=== PATIENT | female | born 1995 | race African-American/Black ===

== ENCOUNTER 2020-08-03 03:07 | Emergency (ER) | payer MEDICAID ==
[2020-08-03] MEDS ORDERED: LORazepam 0.5 MG Tab PO ONE (03:37)
--- NOTE | 2020-08-03 03:41 | EDM.PDOCBH ---
ED HPI GENERAL MEDICAL PROBLEM - General Chief Complaint: Behavioral/Psych Stated Complaint: MENTAL HEALTH CRISIS Time Seen by Provider: 08/03/20 03:20 Source of Information: Reports: Patient, RN Notes Reviewed - History of Present Illness INITIAL COMMENTS - FREE TEXT/NARRATIVE: 24 yr old female with concern about severe stress and anxiety. Sx are chronic but worse the last few days. She feels that she needs help and somewhere to feel more safe. Asked several times if there has been any particular trigger for current distress, pt not aware of anything in particular. There is a staff member from [facility] here with her who believes it should be OK for her to be admitted to the [facility]. No hallucinations or feelings of self harm. Had a cough a few days ago, now gone. Had a rapid covid screen done at clinic 2 days ago which was negative. Pt states send out results are expected to be available today. Headache Pain Score (Numeric/FACES): 8 - Related Data Allergies Allergy/AdvReac Type Severity Reaction Status Date / Time divalproex sodium Allergy Rash Verified 08/03/20 03:23 [From Depakote] lurasidone [From Latuda] Allergy Rash Verified 08/03/20 03:23 Home Meds: Home Meds LORazepam [Ativan] 0.5 mg PO BID #6 tablet 08/03/20 [Rx] QUEtiapine Fumarate [Seroquel] 200 mg PO BEDTIME 08/03/20 [History] QUEtiapine [SEROquel] 50 mg PO 1200,1700 08/03/20 [History] amLODIPine Besylate [Norvasc] 10 mg PO DAILY 08/03/20 [History] lamoTRIgine [Lamotrigine] 50 mg PO BID 08/03/20 [History] Past Medical History Cardiovascular History: Reports: Hypertension Psychiatric History: Reports: Anxiety, Depression, PTSD Social & Family History - Tobacco Use Tobacco Use Status *Q: Current Every Day Tobacco User Years of Tobacco use: 1 Packs/Tins Daily: 1 - Recreational Drug Use Recreational Drug Use: Yes Drug Use in Last 12 Months: No Recreational Drug Type: Reports: Marijuana/Hashish ED ROS GENERAL - Review of Systems Review Of Systems: See Below Constitutional: Denies: Fever, Chills HEENT: Denies: Throat Pain Respiratory: Reports: Cough (gone). Denies: Shortness of Breath Cardiovascular: Denies: Chest Pain GI/Abdominal: Denies: Abdominal Pain, Diarrhea, Nausea, Vomiting Musculoskeletal: Reports: No Symptoms Skin: Reports: No Symptoms Neurological: Reports: No Symptoms. Denies: Numbness, Tingling, Trouble Speaking, Difficulty Walking, Weakness Psychiatric: Reports: Anxiety. Denies: Depression, Suicidal Ideation ED EXAM, BEHAVIORAL HEALTH - Physical Exam Exam: See Below General Appearance: Alert, No Apparent Distress Head: Atraumatic Neck: Supple Respiratory/Chest: No Respiratory Distress, Lungs Clear, Normal Breath Sounds. No: Rhonchi, Wheezing Cardiovascular: Tachycardia GI/Abdominal: Soft, Non-Tender Back Exam: No: CVA Tenderness (L), CVA Tenderness (R) Extremities: Normal Inspection, Normal Range of Motion Neurological: Alert, No Motor/Sensory Deficits Psychiatric: Alert, Normal Affect, Normal Cognition. No: Suicidal Thoughts, Auditory Hallucinations, Visual Hallucinations Skin Exam: Warm, Dry COURSE, BEHAVIORAL HEALTH COMP - Course Vital Signs: Last Vital Signs Temp 97.3 F 08/03/20 03:25 Pulse 119 H 08/03/20 03:25 Resp 17 08/03/20 03:25 BP 123/87 08/03/20 03:25 Pulse Ox 95 08/03/20 03:25 Orders, Labs, Meds: Medications Discontinued Medications Generic Name Dose Route Start Last Admin Trade Name Danna PRN Reason Stop Dose Admin Lorazepam 0.5 mg 08/03/20 03:37 08/03/20 03:48 Ativan PO 08/03/20 03:38 0.5 mg ONETIME ONE Administration Re-Assessment/Re-Exam: Pt is not psychotic or suicidal. She is a reasonable candidate for the [facility], Have given ativan 0.5 mg PO. Discharge instr. as documented. Departure - Departure Time of Disposition: 03:45 Disposition: Home, Self-Care 01 Condition: Fair Clinical Impression: PTSD (post-traumatic stress disorder), Anxiety - Discharge Information Prescriptions: LORazepam [Ativan] 0.5 mg PO BID #6 tablet Referrals: PCP,None [Primary Care Provider] - Forms: ED Department Discharge Additional Instructions: Ativan 0.5 mg has been given here in the ED. Continue ativan 0.5 mg twice daily for 3 days. Continue other medications as previously prescribed. A medical screening exam has been done and patient is medically cleared for admission to the [facility]. Sepsis Event Note (ED) - Evaluation Sepsis Screening Result: No Definite Risk - Focused Exam Vital Signs: Vital Signs Temp Pulse Resp BP Pulse Ox 08/03/20 03:25 97.3 F 119 H 17 123/87 95
== END 2020-08-03 04:11 | disposition home or self-care (01) ==
LOC: JD.ED 03:07
DX: F43.10 Post-traumatic stress disorder, unspecified (principal); F41.9 Anxiety disorder, unspecified; I10 Essential (primary) hypertension; Z72.0 Tobacco use; Z88.8 Allergy status to other drugs, medicaments and biological substances; Z79.899 Other long term (current) drug therapy
CPT/HCPCS: 99283; A9270

== ENCOUNTER 2020-08-15 18:08 | Emergency (ER) | payer MEDICAID ==
--- NOTE | 2020-08-15 19:35 | EDM.PDOC ---
ED HPI GENERAL MEDICAL PROBLEM - General Chief Complaint: Behavioral/Psych Stated Complaint: SUICIDAL THOUGHTS Time Seen by Provider: 08/15/20 19:34 - History of Present Illness INITIAL COMMENTS - FREE TEXT/NARRATIVE: 24-year-old female presents the mood urgency room with some suicidal thoughts. She does not have a plan. Patient says she has been under a lot of stress. She has been at the [facility] and was able to cut herself there in the past. She is not eager to go back there. She does go there for counseling however. Patient denies any recent illnesses no fevers chills or other problems. Patient does not have any medical problems that are causing her any distress at this time. Frontal Headache Pain Score (Numeric/FACES): 6 - Related Data Allergies Allergy/AdvReac Type Severity Reaction Status Date / Time divalproex sodium Allergy Severe Rash Verified 08/15/20 18:21 [From Depakote] lurasidone [From Latuda] Allergy Severe Rash Verified 08/15/20 18:21 Home Meds: Home Meds QUEtiapine Fumarate [Seroquel] 200 mg PO BEDTIME 08/03/20 [History] QUEtiapine [SEROquel] 50 mg PO 1200,1700 08/03/20 [History] amLODIPine Besylate [Norvasc] 10 mg PO DAILY 08/03/20 [History] lamoTRIgine [Lamotrigine] 75 mg PO BID 08/03/20 [History] QUEtiapine [SEROquel] 50 mg PO ASDIRECTED #20 tab 08/15/20 [Rx] QUEtiapine [SEROquel] 200 mg PO BEDTIME #20 tab 08/15/20 [Rx] lamoTRIgine 75 mg PO BID #60 tab 08/15/20 [Rx] Past Medical History Cardiovascular History: Reports: Hypertension Psychiatric History: Reports: Anxiety, Depression, PTSD Social & Family History - Tobacco Use Tobacco Use Status *Q: Current Every Day Tobacco User Years of Tobacco use: 1 Packs/Tins Daily: 1 - Caffeine Use Caffeine Use: Reports: Soda - Recreational Drug Use Recreational Drug Use: No ED ROS GENERAL - Review of Systems Review Of Systems: See Below Constitutional: Reports: No Symptoms HEENT: Reports: No Symptoms Respiratory: Reports: No Symptoms Cardiovascular: Reports: No Symptoms Endocrine: Reports: No Symptoms GI/Abdominal: Reports: No Symptoms : Reports: No Symptoms Musculoskeletal: Reports: No Symptoms Skin: Reports: No Symptoms Neurological: Reports: No Symptoms Psychiatric: Reports: Anxiety, Depression, Suicidal Ideation. Denies: Agitation, Homicidal Ideation, Mood Lability Hematologic/Lymphatic: Reports: No Symptoms Immunologic: Reports: No Symptoms ED EXAM, GENERAL - Physical Exam Exam: See Below Exam Limited By: No Limitations General Appearance: Alert, No Apparent Distress Eye Exam: Bilateral Eye: Normal Inspection, PERRL Ears: Normal External Exam, Normal Canal, Hearing Grossly Normal, Normal TMs Nose: Normal Inspection, Normal Mucosa, No Blood Throat/Mouth: Normal Inspection, Normal Lips, Normal Teeth, Normal Gums, Normal Oropharynx, Normal Voice, No Airway Compromise Head: Atraumatic, Normocephalic Neck: Normal Inspection, Supple, Non-Tender, Full Range of Motion. No: Lymphadenopathy (L), Lymphadenopathy (R) Respiratory/Chest: No Respiratory Distress, Lungs Clear, Normal Breath Sounds Cardiovascular: Normal Peripheral Pulses, Regular Rate, Rhythm, No Edema, No Murmur GI/Abdominal: Normal Bowel Sounds, Soft, Non-Tender Back Exam: Normal Inspection. No: CVA Tenderness (L), CVA Tenderness (R) Neurological: Alert, Oriented, CN II-XII Intact, Normal Cognition, Normal Gait, Normal Reflexes, No Motor/Sensory Deficits Lymphatic: No Adenopathy #1 Interpretation EKG Date: 08/15/20 Rhythm: Other (Sinus tach rate 104) [place]: Normal P-Wave: Present QRS: Normal ST-T: Normal QT: Normal GA/PQ Interval: Normal Comparison: NA - No Prior EKG EKG Interpretation Comments: Borderline EKG mild tachycardia Course - Vital Signs Last Recorded V/S: Last Vital Signs Temp 36.9 C 08/15/20 18:26 Pulse 117 H 08/15/20 18:26 Resp 20 08/15/20 18:26 BP 138/86 08/15/20 18:26 Pulse Ox 96 08/15/20 18:26 - Orders/Labs/Meds Orders: Active Orders 24 hr Category Date Time Status EKG Documentation Completion [RC] STAT Care 08/15/20 21:48 Active CULTURE URINE [RM] Stat Lab 08/15/20 19:55 Received Labs: Laboratory Tests 08/15/20 08/15/20 08/15/20 Range/Units 19:55 19:55 19:55 WBC 5.94 (3.98-10.04) K/mm3 RBC 4.75 (3.98-5.22) M/mm3 Hgb 13.8 (11.2-15.7) gm/dl Hct 41.5 (34.1-44.9) % MCV 87.4 (79.4-94.8) fl MCH 29.1 (25.6-32.2) pg MCHC 33.3 (32.2-35.5) g/dl RDW Std Deviation 39.2 (36.4-46.3) fL Plt Count 346 (182-369) K/mm3 MPV 9.1 L (9.4-12.3) fl Neut % (Auto) 49.9 (34.0-71.1) % Lymph % (Auto) 40.7 (19.3-51.7) % [place] % (Auto) 6.9 (4.7-12.5) % Eos % (Auto) 2.0 (0.7-5.8) Baso % (Auto) 0.2 (0.1-1.2) % Neut # (Auto) 2.96 (1.56-6.13) K/mm3 Lymph # (Auto) 2.42 (1.18-3.74) K/mm3 [place] # (Auto) 0.41 H (0.24-0.36) K/mm3 Eos # (Auto) 0.12 (0.04-0.36) K/mm3 Baso # (Auto) 0.01 (0.01-0.08) K/mm3 PT 11.4 (9.7-12.0) SECONDS INR 1.07 Sodium (136-145) mEq/L Potassium (3.5-5.1) mEq/L Chloride (98-107) mEq/L Carbon Dioxide (21-32) mEq/L Anion Gap (5-15) BUN (7-18) mg/dL Creatinine (0.55-1.02) mg/dL Est Cr Clr Drug Dosing mL/min Estimated GFR (MDRD) (>60) mL/min BUN/Creatinine Ratio (14-18) Glucose (74-106) mg/dL Calcium (8.5-10.1) mg/dL Total Bilirubin (0.2-1.0) mg/dL AST (15-37) U/L ALT (14-59) U/L Alkaline Phosphatase (46-116) U/L Total Protein (6.4-8.2) g/dl Albumin (3.4-5.0) g/dl Globulin gm/dL Albumin/Globulin Ratio (1-2) TSH 3rd Generation (0.358-3.74) uIU/mL Urine Color Yellow (Yellow) Urine Appearance Cloudy H (Clear) Urine pH 6.0 (5.0-8.0) Ur Specific [place] > or = 1.030 (1.005-1.030) Urine Protein Trace H (Negative) Urine Glucose (UA) Negative (Negative) Urine Ketones Negative (Negative) Urine Occult Blood Trace-intact H (Negative) Urine Nitrite Negative (Negative) Urine Bilirubin Negative (Negative) Urine Urobilinogen 1.0 (0.2-1.0) Ur Leukocyte Esterase Trace H (Negative) Urine RBC 0-5 (0-5) /hpf Urine WBC 10-20 H (0-5) /hpf Ur Squamous Epith Cells 10-20 H (0-5) /hpf Urine Bacteria Many H (FEW) /hpf Urine Mucus Many H (FEW) /hpf Urine HCG, Qual (NEGATIVE) Salicylates (2.8-20) mg/dL Urine Opiates Screen (KRBKOX=071) Ur Buprenorphine Scrn (CUTOFF=10) Ur Oxycodone Screen (TJD4CO=359) Urine Methadone Screen (DFZOMD=985) Ur Propoxyphene Screen (YYQGVM=025) Acetaminophen (10-30) ug/mL Ur Barbiturates Screen (JOTURM=595) Ur Tricyclics Screen (FXTBOW=008) Ur Phencyclidine Scrn (CUTOFF=25) Ur Amphetamine Screen (XBJDSI=189) U Methamphetamines Scrn (KDOTUA=184) U Benzodiazepines Scrn (ZENEUS=696) U Cocaine Metab Screen (ESFUSL=795) U Marijuana (THC) Screen (CUTOFF=50) Ethyl Alcohol (0.00) gm% SARS-CoV-2 RNA (LAILA) (NEGATIVE) 08/15/20 08/15/20 08/15/20 Range/Units 19:55 19:55 19:55 WBC (3.98-10.04) K/mm3 RBC (3.98-5.22) M/mm3 Hgb (11.2-15.7) gm/dl Hct (34.1-44.9) % MCV (79.4-94.8) fl MCH (25.6-32.2) pg MCHC (32.2-35.5) g/dl RDW Std Deviation (36.4-46.3) fL Plt Count (182-369) K/mm3 MPV (9.4-12.3) fl Neut % (Auto) (34.0-71.1) % Lymph % (Auto) (19.3-51.7) % [place] % (Auto) (4.7-12.5) % Eos % (Auto) (0.7-5.8) Baso % (Auto) (0.1-1.2) % Neut # (Auto) (1.56-6.13) K/mm3 Lymph # (Auto) (1.18-3.74) K/mm3 [place] # (Auto) (0.24-0.36) K/mm3 Eos # (Auto) (0.04-0.36) K/mm3 Baso # (Auto) (0.01-0.08) K/mm3 PT (9.7-12.0) SECONDS INR Sodium 142 (136-145) mEq/L Potassium 3.6 (3.5-5.1) mEq/L Chloride 105 (98-107) mEq/L Carbon Dioxide 27 (21-32) mEq/L Anion Gap 13.6 (5-15) BUN 10 (7-18) mg/dL Creatinine 0.9 (0.55-1.02) mg/dL Est Cr Clr Drug Dosing 105.13 mL/min Estimated GFR (MDRD) > 60 (>60) mL/min BUN/Creatinine Ratio 11.1 L (14-18) Glucose 115 H (74-106) mg/dL Calcium 9.8 (8.5-10.1) mg/dL Total Bilirubin 0.7 (0.2-1.0) mg/dL AST 11 L (15-37) U/L ALT 23 (14-59) U/L Alkaline Phosphatase 70 (46-116) U/L Total Protein 7.7 (6.4-8.2) g/dl Albumin 4.0 (3.4-5.0) g/dl Globulin 3.7 gm/dL Albumin/Globulin Ratio 1.1 (1-2) TSH 3rd Generation 0.576 (0.358-3.74) uIU/mL Urine Color (Yellow) Urine Appearance (Clear) Urine pH (5.0-8.0) Ur Specific [place] (1.005-1.030) Urine Protein (Negative) Urine Glucose (UA) (Negative) Urine Ketones (Negative) Urine Occult Blood (Negative) Urine Nitrite (Negative) Urine Bilirubin (Negative) Urine Urobilinogen (0.2-1.0) Ur Leukocyte Esterase (Negative) Urine RBC (0-5) /hpf Urine WBC (0-5) /hpf Ur Squamous Epith Cells (0-5) /hpf Urine Bacteria (FEW) /hpf Urine Mucus (FEW) /hpf Urine HCG, Qual (NEGATIVE) Salicylates 0.2 L (2.8-20) mg/dL Urine Opiates Screen Negative (ZDZFNL=938) Ur Buprenorphine Scrn Negative (CUTOFF=10) Ur Oxycodone Screen Negative (YPH6TM=392) Urine Methadone Screen Negative (YRSHIJ=074) Ur Propoxyphene Screen Negative (APWQVH=357) Acetaminophen 0 L (10-30) ug/mL Ur Barbiturates Screen Negative (YPUZLE=759) Ur Tricyclics Screen Presumptive positive H (FNLSVX=350) Ur Phencyclidine Scrn Negative (CUTOFF=25) Ur Amphetamine Screen Negative (TRMAFC=204) U Methamphetamines Scrn Negative (MAQWDF=311) U Benzodiazepines Scrn Negative (QWYJPK=997) U Cocaine Metab Screen Negative (DETPNG=679) U Marijuana (THC) Screen Negative (CUTOFF=50) Ethyl Alcohol 0.00 (0.00) gm% SARS-CoV-2 RNA (LAILA) (NEGATIVE) 08/15/20 08/15/20 Range/Units 19:55 20:30 WBC (3.98-10.04) K/mm3 RBC (3.98-5.22) M/mm3 Hgb (11.2-15.7) gm/dl Hct (34.1-44.9) % MCV (79.4-94.8) fl MCH (25.6-32.2) pg MCHC (32.2-35.5) g/dl RDW Std Deviation (36.4-46.3) fL Plt Count (182-369) K/mm3 MPV (9.4-12.3) fl Neut % (Auto) (34.0-71.1) % Lymph % (Auto) (19.3-51.7) % [place] % (Auto) (4.7-12.5) % Eos % (Auto) (0.7-5.8) Baso % (Auto) (0.1-1.2) % Neut # (Auto) (1.56-6.13) K/mm3 Lymph # (Auto) (1.18-3.74) K/mm3 [place] # (Auto) (0.24-0.36) K/mm3 Eos # (Auto) (0.04-0.36) K/mm3 Baso # (Auto) (0.01-0.08) K/mm3 PT (9.7-12.0) SECONDS INR Sodium (136-145) mEq/L Potassium (3.5-5.1) mEq/L Chloride (98-107) mEq/L Carbon Dioxide (21-32) mEq/L Anion Gap (5-15) BUN (7-18) mg/dL Creatinine (0.55-1.02) mg/dL Est Cr Clr Drug Dosing mL/min Estimated GFR (MDRD) (>60) mL/min BUN/Creatinine Ratio (14-18) Glucose (74-106) mg/dL Calcium (8.5-10.1) mg/dL Total Bilirubin (0.2-1.0) mg/dL AST (15-37) U/L ALT (14-59) U/L Alkaline Phosphatase (46-116) U/L Total Protein (6.4-8.2) g/dl Albumin (3.4-5.0) g/dl Globulin gm/dL Albumin/Globulin Ratio (1-2) TSH 3rd Generation (0.358-3.74) uIU/mL Urine Color (Yellow) Urine Appearance (Clear) Urine pH (5.0-8.0) Ur Specific [place] (1.005-1.030) Urine Protein (Negative) Urine Glucose (UA) (Negative) Urine Ketones (Negative) Urine Occult Blood (Negative) Urine Nitrite (Negative) Urine Bilirubin (Negative) Urine Urobilinogen (0.2-1.0) Ur Leukocyte Esterase (Negative) Urine RBC (0-5) /hpf Urine WBC (0-5) /hpf Ur Squamous Epith Cells (0-5) /hpf Urine Bacteria (FEW) /hpf Urine Mucus (FEW) /hpf Urine HCG, Qual Negative (NEGATIVE) Salicylates (2.8-20) mg/dL Urine Opiates Screen (ZTALEY=216) Ur Buprenorphine Scrn (CUTOFF=10) Ur Oxycodone Screen (VDT0GR=304) Urine Methadone Screen (IXYYHC=242) Ur Propoxyphene Screen (JFWFGE=859) Acetaminophen (10-30) ug/mL Ur Barbiturates Screen (BJZRBF=796) Ur Tricyclics Screen (ZSSRMH=353) Ur Phencyclidine Scrn (CUTOFF=25) Ur Amphetamine Screen (GBIAPG=189) U Methamphetamines Scrn (XFSNHZ=346) U Benzodiazepines Scrn (BTSYSD=880) U Cocaine Metab Screen (HMCJQK=249) U Marijuana (THC) Screen (CUTOFF=50) Ethyl Alcohol (0.00) gm% SARS-CoV-2 RNA (LAILA) Negative (NEGATIVE) - Re-Assessments/Exams Free Text/Narrative Re-Assessment/Exam: 08/15/20 22:35 [facility] [place] is willing to take the patient however we have no transportation. The patient is willing to go to [facility]. I did discuss situation with [facility] and they are happy to take the patient. Departure - Departure Time of Disposition: 22:36 Disposition: DC/Tfer to Other 70 Clinical Impression: Suicidal thoughts - Discharge Information Referrals: PCP,Unknown [Ordering Only Provider] - Forms: ED Department Discharge Additional Instructions: Go straight to [facility]. Take your same meds as prior. Return to the emergency room with any questions problems or worsening symptoms Sepsis Event Note (ED) - Evaluation Sepsis Screening Result: No Definite Risk - Focused Exam Vital Signs: Vital Signs Temp Pulse Resp BP Pulse Ox 08/15/20 18:26 36.9 C 117 H 20 138/86 96 - My Orders Last 24 Hours: My Active Orders 08/15/20 19:55 CULTURE URINE [RM] Stat 08/15/20 21:48 EKG Documentation Completion [RC] STAT - Assessment/Plan Last 24 Hours: My Active Orders 08/15/20 19:55 CULTURE URINE [RM] Stat 08/15/20 21:48 EKG Documentation Completion [RC] STAT
[2020-08-15 20:42] LABS: ACETAMINOPHEN 0 ug/mL (10-30)
== END 2020-08-15 23:00 | disposition other institution (70) ==
LOC: JD.ED 18:08
DX: R45.851 Suicidal ideations (principal); I10 Essential (primary) hypertension; Z77.22 Contact with and (suspected) exposure to environmental tobacco smoke (acute) (chronic); Z20.822 Contact with and (suspected) exposure to COVID-19; Z88.8 Allergy status to other drugs, medicaments and biological substances; Z79.899 Other long term (current) drug therapy
CPT/HCPCS: 36415; 80053; 80143; 80179; 80306; 80307; 81001; 81025; 84443; 85025; 85610; 87086; 93005; 93010; 99284; 99285-25; U0002

== ENCOUNTER 2020-08-22 07:23 | Emergency (ER) | payer MEDICAID ==
[2020-08-22] MEDS ORDERED: Acetaminophen 325 MG Tab PO ONE (08:03)
--- NOTE | 2020-08-22 08:06 | EDM.PDOCBH ---
ED HPI GENERAL MEDICAL PROBLEM - General Chief Complaint: Behavioral/Psych Stated Complaint: MENTAL HEALTH CRISIS Time Seen by Provider: 08/22/20 07:39 Source of Information: Reports: Patient History Limitations: Reports: No Limitations - History of Present Illness INITIAL COMMENTS - FREE TEXT/NARRATIVE: The patient presents with suicidal and homicidal ideation. She will not go into any details at all about who she wants to hurt, when where or why. She also will not give any details about her suicidal ideation. Such as her plan. She has been here twice in the past few months and has been sent to [facility]. She says they do not help her there. There is no therapy sessions and no doctor saw her. She does receive services from [facility]. She says she moved here from [place] in May and had no mental health problems before. She is having trouble with the people here and living in [place]. She denies fever, chills, cough, congestion, runny nose, chest pain, shortness of breath, abdominal pain, nausea or vomiting. She does have a headache. Onset: Gradual Duration: Week(s): Severity: Moderate Improves with: Reports: None Worsens with: Reports: None Associated Symptoms: Reports: Headaches. Denies: Chest Pain, Cough, Fever/Chills, Nausea/Vomiting, Shortness of Breath - Related Data Allergies Allergy/AdvReac Type Severity Reaction Status Date / Time divalproex sodium Allergy Severe Rash Verified 08/15/20 18:21 [From Depakote] lurasidone [From Latuda] Allergy Severe Rash Verified 08/15/20 18:21 Home Meds: Home Meds QUEtiapine [SEROquel] 50 mg PO BID 08/03/20 [History] amLODIPine Besylate [Norvasc] 10 mg PO DAILY 08/03/20 [History] lamoTRIgine [Lamotrigine] 100 mg PO BID 08/03/20 [History] ClonazePAM [KlonoPIN] 0.5 - 1 mg PO BID 08/22/20 [History] Past Medical History Cardiovascular History: Reports: Hypertension Psychiatric History: Reports: Anxiety, Depression, PTSD, Suicidal Ideation Other Psychiatric History: SI with no plan at this time Social & Family History - Family History Family Medical History: No Pertinent Family History - Caffeine Use Caffeine Use: Reports: Soda ED ROS GENERAL - Review of Systems Review Of Systems: See Below Constitutional: Reports: No Symptoms HEENT: Reports: No Symptoms Respiratory: Reports: No Symptoms Cardiovascular: Reports: No Symptoms Endocrine: Reports: No Symptoms GI/Abdominal: Reports: No Symptoms : Reports: No Symptoms Musculoskeletal: Reports: No Symptoms Skin: Reports: No Symptoms Neurological: Reports: Headache ED EXAM, BEHAVIORAL HEALTH - Physical Exam Exam: See Below Exam Limited By: No Limitations General Appearance: Alert, No Apparent Distress Ears: Normal External Exam Nose: Normal Inspection Head: Atraumatic, Normocephalic Neck: Normal Inspection Respiratory/Chest: No Respiratory Distress, Lungs Clear, Normal Breath Sounds Cardiovascular: Regular Rate, Rhythm, No Edema, No Murmur GI/Abdominal: Soft, Non-Tender, No Organomegaly, No Mass Back Exam: Normal Inspection Extremities: Normal Inspection COURSE, BEHAVIORAL HEALTH COMP - Course Vital Signs: Last Vital Signs Temp 96.8 F L 08/22/20 07:35 Pulse 111 H 08/22/20 07:35 Resp 16 08/22/20 07:35 BP 119/108 H 08/22/20 07:35 Pulse Ox 100 08/22/20 07:35 Orders, Labs, Meds: Active Orders 24 hr Category Date Time Status Cardiac Monitoring [RC] . DIRECTED Care 08/22/20 07:58 Active Laboratory Tests 08/22/20 08/22/20 08/22/20 Range/Units 08:05 08:10 08:10 WBC 9.31 (3.98-10.04) K/mm3 RBC 4.61 (3.98-5.22) M/mm3 Hgb 13.4 (11.2-15.7) gm/dl Hct 40.1 (34.1-44.9) % MCV 87.0 (79.4-94.8) fl MCH 29.1 (25.6-32.2) pg MCHC 33.4 (32.2-35.5) g/dl RDW Std Deviation 39.0 (36.4-46.3) fL Plt Count 345 (182-369) K/mm3 MPV 9.0 L (9.4-12.3) fl Neut % (Auto) 58.5 (34.0-71.1) % Lymph % (Auto) 32.0 (19.3-51.7) % [place] % (Auto) 8.3 (4.7-12.5) % Eos % (Auto) 0.8 (0.7-5.8) Baso % (Auto) 0.1 (0.1-1.2) % Neut # (Auto) 5.45 (1.56-6.13) K/mm3 Lymph # (Auto) 2.98 (1.18-3.74) K/mm3 [place] # (Auto) 0.77 H (0.24-0.36) K/mm3 Eos # (Auto) 0.07 (0.04-0.36) K/mm3 Baso # (Auto) 0.01 (0.01-0.08) K/mm3 Sodium 140 (136-145) mEq/L Potassium 4.1 (3.5-5.1) mEq/L Chloride 104 (98-107) mEq/L Carbon Dioxide 24 (21-32) mEq/L Anion Gap 16.1 H (5-15) BUN 18 (7-18) mg/dL Creatinine 0.8 (0.55-1.02) mg/dL Est Cr Clr Drug Dosing 118.27 mL/min Estimated GFR (MDRD) > 60 (>60) mL/min BUN/Creatinine Ratio 22.5 H (14-18) Glucose 101 (74-106) mg/dL Calcium 9.3 (8.5-10.1) mg/dL Total Bilirubin 0.4 (0.2-1.0) mg/dL AST 8 L (15-37) U/L ALT 14 (14-59) U/L Alkaline Phosphatase 64 (46-116) U/L Total Protein 7.7 (6.4-8.2) g/dl Albumin 3.9 (3.4-5.0) g/dl Globulin 3.8 gm/dL Albumin/Globulin Ratio 1.0 (1-2) TSH 3rd Generation 0.619 (0.358-3.74) uIU/mL HCG, Qual (NEGATIVE) Salicylates (2.8-20) mg/dL Urine Opiates Screen (DMJRWS=897) Ur Buprenorphine Scrn (CUTOFF=10) Ur Oxycodone Screen (NAL0WZ=091) Urine Methadone Screen (PBQUTU=095) Ur Propoxyphene Screen (MNVMVA=013) Acetaminophen 0 L (10-30) ug/mL Ur Barbiturates Screen (FQLMNG=290) Ur Tricyclics Screen (CXDBZD=574) Ur Phencyclidine Scrn (CUTOFF=25) Ur Amphetamine Screen (CLCUYV=803) U Methamphetamines Scrn (LDCGEG=968) U Benzodiazepines Scrn (LPGSSZ=591) U Cocaine Metab Screen (ZDAPAW=734) U Marijuana (THC) Screen (CUTOFF=50) Ethyl Alcohol 0.00 (0.00) gm% SARS-CoV-2 RNA (LAILA) Negative (NEGATIVE) 08/22/20 08/22/20 08/22/20 Range/Units 08:10 08:10 08:13 WBC (3.98-10.04) K/mm3 RBC (3.98-5.22) M/mm3 Hgb (11.2-15.7) gm/dl Hct (34.1-44.9) % MCV (79.4-94.8) fl MCH (25.6-32.2) pg MCHC (32.2-35.5) g/dl RDW Std Deviation (36.4-46.3) fL Plt Count (182-369) K/mm3 MPV (9.4-12.3) fl Neut % (Auto) (34.0-71.1) % Lymph % (Auto) (19.3-51.7) % [place] % (Auto) (4.7-12.5) % Eos % (Auto) (0.7-5.8) Baso % (Auto) (0.1-1.2) % Neut # (Auto) (1.56-6.13) K/mm3 Lymph # (Auto) (1.18-3.74) K/mm3 [place] # (Auto) (0.24-0.36) K/mm3 Eos # (Auto) (0.04-0.36) K/mm3 Baso # (Auto) (0.01-0.08) K/mm3 Sodium (136-145) mEq/L Potassium (3.5-5.1) mEq/L Chloride (98-107) mEq/L Carbon Dioxide (21-32) mEq/L Anion Gap (5-15) BUN (7-18) mg/dL Creatinine (0.55-1.02) mg/dL Est Cr Clr Drug Dosing mL/min Estimated GFR (MDRD) (>60) mL/min BUN/Creatinine Ratio (14-18) Glucose (74-106) mg/dL Calcium (8.5-10.1) mg/dL Total Bilirubin (0.2-1.0) mg/dL AST (15-37) U/L ALT (14-59) U/L Alkaline Phosphatase (46-116) U/L Total Protein (6.4-8.2) g/dl Albumin (3.4-5.0) g/dl Globulin gm/dL Albumin/Globulin Ratio (1-2) TSH 3rd Generation (0.358-3.74) uIU/mL HCG, Qual Negative (NEGATIVE) Salicylates 0.5 L (2.8-20) mg/dL Urine Opiates Screen Negative (SLRATX=213) Ur Buprenorphine Scrn Negative (CUTOFF=10) Ur Oxycodone Screen Negative (DLJ9YU=506) Urine Methadone Screen Negative (MUDIJZ=601) Ur Propoxyphene Screen Negative (HYJNGU=446) Acetaminophen (10-30) ug/mL Ur Barbiturates Screen Negative (CRMNUJ=263) Ur Tricyclics Screen Presumptive positive H (OEEOTK=839) Ur Phencyclidine Scrn Negative (CUTOFF=25) Ur Amphetamine Screen Negative (OSAICZ=055) U Methamphetamines Scrn Negative (PLYYWZ=724) U Benzodiazepines Scrn Negative (PHEOIQ=103) U Cocaine Metab Screen Negative (FNIWRL=528) U Marijuana (THC) Screen Negative (CUTOFF=50) Ethyl Alcohol (0.00) gm% SARS-CoV-2 RNA (LAILA) (NEGATIVE) Medications Discontinued Medications Generic Name Dose Route Start Last Admin Trade Name Danna PRN Reason Stop Dose Admin Acetaminophen 975 mg 08/22/20 08:03 08/22/20 08:11 Tylenol PO 08/22/20 08:04 975 mg NOW ONE Administration Re-Assessment/Re-Exam: I have ordered lab work to include a COVID 19 test. Her CBC and CMP look good. Her TSH and HCG are negative. Her salicylates and acetaminophen are negative. Her urine drug screen was positive for tricyclics. Her ETOH and COVID 19 are negative. I will call around and see who has a bed. I called [facility] and talked with Dr Hansen the psychiatrist out of town collection clerk and she accepted the patient. We will contact the [facility] deputy to transport. Departure - Departure Time of Disposition: 11:20 Disposition: DC/Tfer to Psych Hosp/Unit [facility] Clinical Impression: Depressive disorder, Suicidal ideation, Homicidal thoughts - Discharge Information Referrals: PCP,None [Primary Care Provider] - Forms: ED Department Discharge Sepsis Event Note (ED) - Evaluation Sepsis Screening Result: No Definite Risk - Focused Exam Vital Signs: Vital Signs Temp Pulse Resp BP Pulse Ox 08/22/20 07:35 96.8 F L 111 H 16 119/108 H 100 - My Orders Last 24 Hours: My Active Orders 08/22/20 07:58 Cardiac Monitoring [RC] . DIRECTED - Assessment/Plan Last 24 Hours: My Active Orders 08/22/20 07:58 Cardiac Monitoring [RC] . DIRECTED
[2020-08-22 08:46] LABS: ACETAMINOPHEN 0 ug/mL (10-30)
== END 2020-08-22 12:50 ==
LOC: JD.ED 07:23
DX: F32.9 Major depressive disorder, single episode, unspecified (principal); R45.850 Homicidal ideations; I10 Essential (primary) hypertension; Z79.899 Other long term (current) drug therapy; Z88.8 Allergy status to other drugs, medicaments and biological substances; Z20.822 Contact with and (suspected) exposure to COVID-19
CPT/HCPCS: 36415; 80053; 80143; 80179; 80306; 80307; 84443; 84703; 85025; 87635; 99284; A9270; U0002

== ENCOUNTER 2020-08-24 23:41 | Emergency (ER) | payer MEDICAID ==
--- NOTE | 2020-08-25 00:23 | EDM.PDOCBH ---
ED HPI GENERAL MEDICAL PROBLEM - General Chief Complaint: Behavioral/Psych Stated Complaint: MAREK BARNES Time Seen by Provider: 08/25/20 00:09 Source of Information: Reports: Patient, Old Records (ED visit 08/22/2020) History Limitations: Reports: Uncooperative - History of Present Illness INITIAL COMMENTS - FREE TEXT/NARRATIVE: Ms. Dyson is a 24-year-old woman who, medical records indicate, was seen in this ED just 3 days ago, on 08/22/2020, with a complaint at that time of suicidal and homicidal ideation. The medical record indicates that she refused to go into any details about who she wanted to hurt, when, where, or why. She would not provide any information about her suicidal ideation or plan. She was found to be tachycardic with an oxygen saturation of 100% on room air, otherwise, hemodynamically stable and afebrile. Her physical exam was unremarkable. Work- up included a CBC, CMP, a TSH level, a qualitative hCG, acetaminophen and salicylate levels, an EtOH level, a urine drug screen, and a swab for the SARS-CoV-2 virus. Her urine drug screen returned positive for tricyclic's, otherwise, her entire work-up was unremarkable. The patient was subsequently admitted to [facility], transported by a lockstitcher's deputy. The patient now returns to the ED stating that she was discharged from [facility] yesterday, 08/24/2020, and that she was escorted out of the facility by the police. The patient tells me that when there, she was placed into a solitary confinement, not given any medications, and discharged without any prescriptions. She states that she is still suicidal, however, she states that she has no plan. The patient states that she attempted suicide once before, "years ago", but refused to tell me how she attempted suicide. She stated that she broke some glass earlier today, but I don't believe that that was the suicide attempt that she was referring to. Unfortunately, I was unable to get any other information from the patient. She acknowledged that she has a history of hypertension, but when I asked if she takes medications for it, she responded that all of that information is already in our computer system, and why am I asking her. Here in the ED today, the patient is found to be hemodynamically stable, afebrile, saturating 97% on room air. Due to lack of cooperation, I was unable to obtain the patient's recent review of symptoms. I do not know if the patient has a PCP or Psychiatrist, however, the triage note indicates that she is seen at [facility]. I was unable to determine if the patient received an influenza vaccine this season or not. Headache Pain Score (Numeric/FACES): 6 - Related Data Allergies Allergy/AdvReac Type Severity Reaction Status Date / Time divalproex sodium Allergy Severe Rash Verified 08/25/20 00:03 [From Depakote] lurasidone [From Latuda] Allergy Severe Rash Verified 08/25/20 00:03 Home Meds: Home Meds QUEtiapine [SEROquel] 50 mg PO BID 08/03/20 [History] amLODIPine Besylate [Norvasc] 10 mg PO DAILY 08/03/20 [History] lamoTRIgine [Lamotrigine] 100 mg PO BID 08/03/20 [History] ClonazePAM [KlonoPIN] 0.5 - 1 mg PO BID 08/22/20 [History] Past Medical History Cardiovascular History: Reports: Hypertension Psychiatric History: Reports: Anxiety, Depression, PTSD, Suicidal Ideation Social & Family History - Caffeine Use Caffeine Use: Reports: Coffee, Soda ED ROS GENERAL - Review of Systems Review Of Systems: Unable To Obtain Reason Not Obtained: Not cooperative ED EXAM, BEHAVIORAL HEALTH - Physical Exam Exam: Not Obtained Reason Not Obtained: Not cooperative COURSE, BEHAVIORAL HEALTH COMP - Course Vital Signs: Last Vital Signs Temp 36.3 C 08/25/20 00:02 Pulse 169 H 08/25/20 00:02 Resp 20 08/25/20 00:02 BP 113/73 08/25/20 00:02 Pulse Ox 97 08/25/20 00:02 Medical Clearance: 08/25/20 00:21 As above, the patient was seen in this ED 2 days ago for suicidal ideation with a plan, and admitted to [facility]. According to the patient, she was placed into solitary confinement and discharged without any prescriptions. She was escorted out of [facility] by the police. She now returns to our ED stating that she is feeling suicidal, however, thus far I have not been able to get any other meaningful information from her, as she is extremely hostile and uncooperative. I have left the room to give her a few minutes to calm down. 08/25/20 00:33 Notified that the patient continued to be hostile with her nurses, therefore the police were called and escorted her out of the ED. 08/25/20 00:50 Notified by Trish MENSAH that the patient is out in the waiting room with the police threatening to kill her self unless I come out to the waiting room and evaluate her. I asked rTish MENSAH to notify the patient that if she is willing answer my questions, be examined, and undergo standard medical tests, then yes, she can come back and be evaluated, however, if the only purpose for her being here is to get into a verbal argument with the staff, then there is no point to bring her back. Additionally, Trish MENSAH stated that the patient told her that she does not want to be transferred to [facility]. 08/25/20 01:16 Notified that the patient was brought back, but then left the ED, telling the staff that she was leaving. The police offered to give her a ride, which she refused, therefore they left. She then returned to the window demanding to be seen again. She has been brought back once again. 08/25/20 02:01 I once again attempted to interview the patient, however, she cannot but be hostile and obstructive. She refused to give me a straight answer to any of my questions, then started demanding that I answer her questions about why she should answer my questions. I have already explained to her several times that it is to determine what her situation is so that I can provide an appropriate recommendation. Nevertheless, the patient continued to refuse to answer my questions. I had to terminate the interview. The police are here to escort her out. Departure - Departure Time of Disposition: 02:06 Disposition: Home, Self-Care 01 Condition: Good Clinical Impression: Suicidal ideation, Hostile behavior - Discharge Information *PRESCRIPTION DRUG MONITORING PROGRAM REVIEWED*: Not Applicable *COPY OF PRESCRIPTION DRUG MONITORING REPORT IN PATIENT JOSEFINA: Not Applicable Referrals: PCP,None [Primary Care Provider] - Forms: ED Department Discharge Sepsis Event Note (ED) - Evaluation Sepsis Screening Result: No Definite Risk - Focused Exam Vital Signs: Vital Signs Temp Pulse Resp BP Pulse Ox 08/25/20 00:02 36.3 C 169 H 20 113/73 97
== END 2020-08-25 02:05 | disposition home or self-care (01) ==
LOC: JD.ED 23:41
DX: R45.5 Hostility (principal); R45.851 Suicidal ideations; R45.850 Homicidal ideations; R00.0 Tachycardia, unspecified; I10 Essential (primary) hypertension; Z88.8 Allergy status to other drugs, medicaments and biological substances; Z79.899 Other long term (current) drug therapy
CPT/HCPCS: 99284

== ENCOUNTER 2020-08-25 04:35 | Emergency (ER) | payer MEDICAID ==
--- NOTE | 2020-08-25 06:30 | EDM.PDOCBH ---
ED HPI GENERAL MEDICAL PROBLEM - General Chief Complaint: Behavioral/Psych Stated Complaint: MAREK BARNES Time Seen by Provider: 08/25/20 06:15 Source of Information: Reports: Patient History Limitations: Reports: Uncooperative - History of Present Illness INITIAL COMMENTS - FREE TEXT/NARRATIVE: Ms. Dyson is a 24-year-old woman, who, medical records indicate, was seen in this ED on 08/03/2020 with a complaint at that time of anxiety. She was discharged to [facility]. She was seen again on 08/15/2020 with suicidal ideation. She was accepted at [facility], however, did not have transportation, therefore returned to [facility]. She was seen again on 08/22/2020 for suicidal and homicidal ideation, however, the medical record indicates that she refused to go into any details about who she wanted to hurt, when, where, or why. She would not provide any information about her suicidal ideation or plan. Her urine drug screen returned positive for tricyclic antidepressants, otherwise, her entire work-up was unremarkable. She was subsequently admitted to [facility], transported by a [facility]'s deputy. She then returned to the ED early this morning, stating that she was discharged from [facility] yesterday on 08/24/2020. The patient told me that when there, she was placed into solitary confinement, not given any medications, and discharged without any prescriptions. We have learned that she was escorted out of the facility by the police. When seen this morning, she stated that she was still feeling suicidal, however, denied having a plan. She reported that she had attempted suicide once before, "years ago", but refused to tell me how she had attempted suicide or what happened as a result. I was unable to get any other information from her. She was extremely hostile and uncooperative, refusing to answer questions. Due to her hostility towards the nurses, the police were called and she was escorted out of the ED, however, when in the waiting room, she threatened to kill herself unless I came out to the waiting room and evaluated her. She agreed to cooperate if brought back, therefore she was, however, she was again uncooperative and left the ED on her own. She then returned again, demanding to be seen again. She was once again brought back, however, continued to be hostile and uncooperative. She was again escorted out of the ED by the police. The patient has returned to the ED. She refused to tell the triage nurse what she is here for, but I presume it is for continued suicidal ideation. Here in the ED at this time, the patient's initial BP is found to be modestly elevated at 157/106, with tachycardia of 126 bpm. She is afebrile, saturating 99% on room air. Due to her lack of cooperation, her recent review of systems is not obtainable. It is not known if the patient has a PCP or Psychiatrist, however, we do know that she sees a counselor at [facility]. It is not known if the patient has received an influenza vaccine this season. - Related Data Allergies Allergy/AdvReac Type Severity Reaction Status Date / Time divalproex sodium Allergy Severe Rash Verified 08/25/20 00:03 [From Depakote] lurasidone [From Latuda] Allergy Severe Rash Verified 08/25/20 00:03 Home Meds: Home Meds QUEtiapine [SEROquel] 50 mg PO BID 08/03/20 [History] amLODIPine Besylate [Norvasc] 10 mg PO DAILY 08/03/20 [History] lamoTRIgine [Lamotrigine] 100 mg PO BID 08/03/20 [History] ClonazePAM [KlonoPIN] 0.5 - 1 mg PO BID 08/22/20 [History] Past Medical History Cardiovascular History: Reports: Hypertension Psychiatric History: Reports: Anxiety, Depression, PTSD, Suicidal Ideation Endocrine/Metabolic History: Reports: Obesity/BMI 30+ Social & Family History - Caffeine Use Caffeine Use: Reports: Coffee, Soda ED ROS GENERAL - Review of Systems Review Of Systems: Unable To Obtain Reason Not Obtained: Patient uncooperative ED EXAM, BEHAVIORAL HEALTH - Physical Exam Exam: See Below Exam Limited By: No Limitations General Appearance: Alert, WD/WN, No Apparent Distress Eye Exam: Bilateral Eye: EOMI, Normal Inspection Ears: Normal External Exam, Hearing Grossly Normal Nose: Normal Inspection Throat/Mouth: Normal Inspection, Normal Lips, Normal Voice, No Airway Compromise Head: Atraumatic, Normocephalic Neck: Normal Inspection, Full Range of Motion Respiratory/Chest: No Respiratory Distress, Lungs Clear, Normal Breath Sounds, No Accessory Muscle Use Cardiovascular: Normal Peripheral Pulses, No Edema, No Gallop, No JVD, No Murmur, No Rub, Tachycardia (regular) GI/Abdominal: Normal Bowel Sounds, Soft, Non-Tender, No Organomegaly, No Distention, No Abnormal Bruit, No Mass Back Exam: Normal Inspection, Full Range of Motion, NT Extremities: Normal Inspection, Normal Range of Motion, Normal Capillary Refill Neurological: Alert, Normal Cognition, No Motor/Sensory Deficits, Oriented x 3 Psychiatric: Other (Hostile) Skin Exam: Warm, Dry, Intact, Normal color, No rash #1 Interpretation EKG Date: 08/25/20 Time: 06:35 Rhythm: Other (Sinus tachycardia) Rate (Beats/Min): 117 [place]: Normal P-Wave: Enlarged (LAE) QRS: Normal ST-T: Normal QT: Normal Comparison: No Change (08/05/2020) COURSE, BEHAVIORAL HEALTH COMP - Course Vital Signs: Last Vital Signs Temp 36.1 C 08/25/20 06:11 Pulse 126 H 08/25/20 06:11 Resp 20 08/25/20 06:11 BP 157/106 H 08/25/20 06:11 Pulse Ox 99 08/25/20 06:11 Orders, Labs, Meds: Laboratory Tests 08/25/20 08/25/20 08/25/20 Range/Units 06:55 06:55 07:27 WBC 8.07 (3.98-10.04) K/mm3 RBC 4.39 (3.98-5.22) M/mm3 Hgb 12.8 (11.2-15.7) gm/dl Hct 38.5 (34.1-44.9) % MCV 87.7 (79.4-94.8) fl MCH 29.2 (25.6-32.2) pg MCHC 33.2 (32.2-35.5) g/dl RDW Std Deviation 38.9 (36.4-46.3) fL Plt Count 316 (182-369) K/mm3 MPV 9.3 L (9.4-12.3) fl Neutrophils % (Manual) 57 (40-60) % Band Neutrophils % 0 (0-10) % Lymphocytes % (Manual) 42 H (20-40) % Atypical Lymphs % 0 % Monocytes % (Manual) 0 L (2-10) % Eosinophils % (Manual) 1 (0.7-5.8) % Basophils % (Manual) 0 L (0.1-1.2) Platelet Estimate Adequate RBC Morph Comment Normal Sodium (136-145) mEq/L Potassium (3.5-5.1) mEq/L Chloride (98-107) mEq/L Carbon Dioxide (21-32) mEq/L Anion Gap (5-15) BUN (7-18) mg/dL Creatinine (0.55-1.02) mg/dL Est Cr Clr Drug Dosing mL/min Estimated GFR (MDRD) (>60) mL/min BUN/Creatinine Ratio (14-18) Glucose (74-106) mg/dL Calcium (8.5-10.1) mg/dL Total Bilirubin (0.2-1.0) mg/dL AST (15-37) U/L ALT (14-59) U/L Alkaline Phosphatase (46-116) U/L Total Protein (6.4-8.2) g/dl Albumin (3.4-5.0) g/dl Globulin gm/dL Albumin/Globulin Ratio (1-2) TSH 3rd Generation (0.358-3.74) uIU/mL Urine HCG, Qual Negative (NEGATIVE) Salicylates (2.8-20) mg/dL Urine Opiates Screen Negative (AFXQTE=042) Ur Buprenorphine Scrn Negative (CUTOFF=10) Ur Oxycodone Screen Negative (WCA5WL=160) Urine Methadone Screen Negative (KQCGZJ=891) Ur Propoxyphene Screen Negative (BRTXPW=873) Acetaminophen (10-30) ug/mL Ur Barbiturates Screen Negative (BEQJTV=678) Ur Tricyclics Screen Presumptive positive H (PFVSBT=898) Ur Phencyclidine Scrn Negative (CUTOFF=25) Ur Amphetamine Screen Negative (XKZOQS=005) U Methamphetamines Scrn Negative (FNZSMY=968) U Benzodiazepines Scrn Presumptive positive H (OHBVLJ=641) U Cocaine Metab Screen Negative (CVUSDJ=010) U Marijuana (THC) Screen Negative (CUTOFF=50) Ethyl Alcohol (0.00) gm% SARS-CoV-2 RNA (LAILA) (NEGATIVE) 08/25/20 08/25/20 08/25/20 Range/Units 07:27 07:27 08:00 WBC (3.98-10.04) K/mm3 RBC (3.98-5.22) M/mm3 Hgb (11.2-15.7) gm/dl Hct (34.1-44.9) % MCV (79.4-94.8) fl MCH (25.6-32.2) pg MCHC (32.2-35.5) g/dl RDW Std Deviation (36.4-46.3) fL Plt Count (182-369) K/mm3 MPV (9.4-12.3) fl Neutrophils % (Manual) (40-60) % Band Neutrophils % (0-10) % Lymphocytes % (Manual) (20-40) % Atypical Lymphs % % Monocytes % (Manual) (2-10) % Eosinophils % (Manual) (0.7-5.8) % Basophils % (Manual) (0.1-1.2) Platelet Estimate RBC Morph Comment Sodium 144 (136-145) mEq/L Potassium 3.3 L (3.5-5.1) mEq/L Chloride 104 (98-107) mEq/L Carbon Dioxide 27 (21-32) mEq/L Anion Gap 16.3 H (5-15) BUN 8 (7-18) mg/dL Creatinine 1.0 (0.55-1.02) mg/dL Est Cr Clr Drug Dosing 100.97 mL/min Estimated GFR (MDRD) > 60 (>60) mL/min BUN/Creatinine Ratio 8.0 L (14-18) Glucose 106 (74-106) mg/dL Calcium 9.3 (8.5-10.1) mg/dL Total Bilirubin 0.4 (0.2-1.0) mg/dL AST 10 L (15-37) U/L ALT 20 (14-59) U/L Alkaline Phosphatase 65 (46-116) U/L Total Protein 7.3 (6.4-8.2) g/dl Albumin 4.0 (3.4-5.0) g/dl Globulin 3.3 gm/dL Albumin/Globulin Ratio 1.2 (1-2) TSH 3rd Generation 0.662 (0.358-3.74) uIU/mL Urine HCG, Qual (NEGATIVE) Salicylates 0.5 L (2.8-20) mg/dL Urine Opiates Screen (INLWRQ=753) Ur Buprenorphine Scrn (CUTOFF=10) Ur Oxycodone Screen (PWN3PP=730) Urine Methadone Screen (HOAVTE=472) Ur Propoxyphene Screen (VQKVIX=316) Acetaminophen 0 L (10-30) ug/mL Ur Barbiturates Screen (MYFKMQ=572) Ur Tricyclics Screen (MWKZSD=779) Ur Phencyclidine Scrn (CUTOFF=25) Ur Amphetamine Screen (QXSIEH=758) U Methamphetamines Scrn (HBYHWO=437) U Benzodiazepines Scrn (UIJGLG=189) U Cocaine Metab Screen (YSQJOX=124) U Marijuana (THC) Screen (CUTOFF=50) Ethyl Alcohol 0.00 (0.00) gm% SARS-CoV-2 RNA (LAILA) Negative (NEGATIVE) Medical Clearance: 08/25/20 06:25 As above, the patient has returned to the ED, seeking psychiatric admission for suicidal ideation, however, I did not attempt to gain any additional history from her. Instead, I simply explained that in order to be able to discuss her case with a psychiatrist or seek psychiatric admission, would first need to examine her, then collect a standard psychiatric medical clearance panel, which includes blood, urine, and an ECG. Provided there are no significant abnormalities to those tests, we would then attempt to find a facility with bed availability suitable for the patient. The patient stated that she does not want to return to [facility], however, I find her that [facility] may be an option. The patient cooperated with an exam, although she did not take deep breaths when asked to. Her physical exam is unremarkable. I have therefore ordered a standard psychiatric medical clearance panel. 08/25/20 08:00 I have been asked by 3 separate nurses, at the patient's request, if she can have some Ativan. 08/25/20 09:04 The patient's CBC is unremarkable. Her CMP is remarkable for slight hypokalemia of 3.3. Her anion gap is slightly elevated at 16.3, but her bicarbonate is normal at 27, with the remainder of her CMP being unremarkable. Her TSH is within normal limits at 0.662. Her acetaminophen level is 0. Her salicylate level is within normal limits at 0.5. Her EtOH level is 0.00. Her urine drug screen is positive for both tricyclic antidepressants and benzodiazepines. Her urine test is negative. Her swab for the SARS-CoV-2 virus returned negative. 08/25/20 09:43 Case discussed with Latrice at [facility] at 09:30. Unfortunately, they are full, with no expectation of any discharges today. Case then discussed with Serina at [facility] at 09:34. Unfortunately, they are full with no expectation of any discharges today. Notified that [facility] in [place] has no bed availability. Notified that [facility] does not have psychiatric beds. Notified that [facility] in [place] has no bed availability. Notified that [facility] in [place] is permanently closed. 08/25/20 09:54 The above situation was discussed with the patient. She queried whether or not she would be able to stay here until a bed became available at a facility, which I explained not possible. I offered to contact [facility], however, she stated that she did not want to go there, and that she had problems with them. I told her that I would be willing to look for availability out of state, but that one of the problems would be transportation. As above, the only history that I was able to get out of the patient this morning was that she was suicidal with no plan. Based on that, I am not able to place her under a 24-hour hold, and the [facility]'s deputies would therefore not be able to transport her. The patient then became hostile and stated that our conversation was over, and that we were going to "get yours", and that we knew what was coming, which I took as a veiled legal threat. I am going to discharge her. 08/25/20 10:08 Notified that the patient eloped the ED without waiting for her discharge instructions. Departure - Departure Time of Disposition: 10:05 Disposition: Eloped 07 Condition: Good Clinical Impression: Suicidal ideation - Discharge Information *PRESCRIPTION DRUG MONITORING PROGRAM REVIEWED*: Not Applicable *COPY OF PRESCRIPTION DRUG MONITORING REPORT IN PATIENT JOSEFINA: Not Applicable Referrals: PCP,None [Primary Care Provider] - Forms: ED Department Discharge Sepsis Event Note (ED) - Evaluation Sepsis Screening Result: No Definite Risk - Focused Exam Vital Signs: Vital Signs Temp Pulse Resp BP Pulse Ox 08/25/20 06:11 36.1 C 126 H 20 157/106 H 99
[2020-08-25 08:25] LABS: ACETAMINOPHEN 0 ug/mL (10-30)
== END 2020-08-25 10:04 | disposition left against medical advice (07) ==
LOC: JD.ED 04:35
DX: R45.851 Suicidal ideations (principal); I10 Essential (primary) hypertension; E66.9 Obesity, unspecified; Z68.31 Body mass index [BMI] 31.0-31.9, adult; Z20.822 Contact with and (suspected) exposure to COVID-19; Z88.8 Allergy status to other drugs, medicaments and biological substances; Z79.899 Other long term (current) drug therapy
CPT/HCPCS: 36415; 80053; 80143; 80179; 80306; 80307; 81025; 84443; 85007; 85027; 93005; 93010; 99284; 99285-25; U0002

== ENCOUNTER 2020-11-09 20:07 | Emergency (ER) | payer MEDICAID ==
[2020-11-09 21:23] LABS: ACETAMINOPHEN 0 ug/mL (10-30)
[2020-11-09] MEDS ORDERED: LORazepam 0.5 MG Tab PO ONE (21:26)
--- NOTE | 2020-11-09 21:36 | EDM.PDOCBH ---
ED HPI GENERAL MEDICAL PROBLEM - General Chief Complaint: Behavioral/Psych Stated Complaint: Medical clearance Time Seen by Provider: 11/09/20 20:32 Source of Information: Reports: Patient, RN Notes Reviewed History Limitations: Reports: No Limitations - History of Present Illness INITIAL COMMENTS - FREE TEXT/NARRATIVE: Patient is a 24-year-old female presenting to the emergency department with complaints of suicidal ideation. She reports a long history of anxiety, depression, and suicidal thoughts. This evening she received a phone call that one of her friends had and states that since that time she has been contemplating self-harm. She does not have a definite plan. She called the [facility] crisis line and they brought her here for medical clear ance to go to the residential crisis center. The keymodule assembly supervisor from [employer] is in the room with her. She has had suicide attempts in the past but states that it has been a long time since she has tried to harm her self. She does report feeling anxious at this time. - Related Data Allergies Allergy/AdvReac Type Severity Reaction Status Date / Time divalproex sodium Allergy Severe Rash Verified 11/09/20 20:26 [From Depakote] lurasidone [From Latuda] Allergy Severe Rash Verified 11/09/20 20:26 Home Meds: Home Meds amLODIPine Besylate [Norvasc] 10 mg PO DAILY 08/03/20 [History] lamoTRIgine [Lamotrigine] 150 mg PO BID 08/03/20 [History] ClonazePAM [KlonoPIN] 1 mg PO BID 08/22/20 [History] haloperidoL [Haloperidol] 10 mg PO BEDTIME 11/09/20 [History] hydroCHLOROthiazide [Hydrochlorothiazide] 25 mg PO DAILY 11/09/20 [History] traZODone HCl [Trazodone HCl] 100 mg PO BEDTIME 11/09/20 [History] Past Medical History Cardiovascular History: Reports: Hypertension Psychiatric History: Reports: Anxiety, Depression, PTSD, Suicidal Ideation Other Psychiatric History: SI with no plan at this time Endocrine/Metabolic History: Reports: Obesity/BMI 30+ Social & Family History - Family History Family Medical History: No Pertinent Family History - Tobacco Use Tobacco Use Status *Q: Unknown Ever Used Tobacco - Caffeine Use Caffeine Use: Reports: None ED ROS GENERAL - Review of Systems Review Of Systems: See Below Constitutional: Reports: No Symptoms HEENT: Reports: No Symptoms Respiratory: Reports: No Symptoms Cardiovascular: Reports: No Symptoms Endocrine: Reports: No Symptoms GI/Abdominal: Reports: No Symptoms : Reports: No Symptoms Musculoskeletal: Reports: No Symptoms Skin: Reports: No Symptoms Neurological: Reports: No Symptoms Psychiatric: Reports: Anxiety, Depression, Suicidal Ideation. Denies: Confusion, Hallucinations, Homicidal Ideation Hematologic/Lymphatic: Reports: No Symptoms Immunologic: Reports: No Symptoms ED EXAM, BEHAVIORAL HEALTH - Physical Exam Exam: See Below Exam Limited By: No Limitations General Appearance: Alert, WD/WN, No Apparent Distress Respiratory/Chest: No Respiratory Distress, Lungs Clear, Normal Breath Sounds, No Accessory Muscle Use, Chest Non-Tender Cardiovascular: Normal Peripheral Pulses, Regular Rate, Rhythm, No Edema, No Gallop, No JVD, No Murmur, No Rub Neurological: Alert, Normal Mood/Affect, CN II-XII Intact, Normal Cognition, Normal Gait, Normal Reflexes, No Motor/Sensory Deficits, Oriented x 3 Psychiatric: Alert, Normal Cognition, Oriented, Flat Affect, Poor Eye Contact. No: Threatening Behavior #1 Interpretation EKG Date: 11/10/20 Time: 20:45 Rhythm: NSR Rate (Beats/Min): 84 [place]: Normal P-Wave: Present QRS: Normal ST-T: Normal QT: Normal EKG Interpretation Comments: Normal sinus rhythm. No atrial argument. No AVB No ischemic changes. Normal transition. No left axis deviation/right axis deviation. No left ventricular hypertrophy pattern. No interventricular conduction delays. QTc within normal limits EKG interpreted by Dr. Lr. COURSE, BEHAVIORAL HEALTH COMP - Course Vital Signs: Last Vital Signs Temp 98.6 F 11/09/20 20:23 Pulse 99 11/09/20 20:23 Resp 16 11/09/20 20:23 BP 140/90 11/09/20 20:23 Pulse Ox 97 11/09/20 20:23 Orders, Labs, Meds: Laboratory Tests 11/09/20 11/09/20 11/09/20 Range/Units 20:35 20:35 20:41 WBC 8.15 (3.98-10.04) K/mm3 RBC 4.61 (3.98-5.22) M/mm3 Hgb 13.6 (11.2-15.7) gm/dl Hct 39.9 (34.1-44.9) % MCV 86.6 (79.4-94.8) fl MCH 29.5 (25.6-32.2) pg MCHC 34.1 (32.2-35.5) g/dl RDW Std Deviation 39.1 (36.4-46.3) fL Plt Count 333 (182-369) K/mm3 MPV 9.2 L (9.4-12.3) fl Neutrophils % (Manual) 50 (40-60) % Band Neutrophils % 0 (0-10) % Lymphocytes % (Manual) 43 H (20-40) % Atypical Lymphs % 0 % Monocytes % (Manual) 7 (2-10) % Eosinophils % (Manual) 0 L (0.7-5.8) % Basophils % (Manual) 0 L (0.1-1.2) Platelet Estimate Adequate RBC Morph Comment Normal Sodium (136-145) mEq/L Potassium (3.5-5.1) mEq/L Chloride (98-107) mEq/L Carbon Dioxide (21-32) mEq/L Anion Gap (5-15) BUN (7-18) mg/dL Creatinine (0.55-1.02) mg/dL Est Cr Clr Drug Dosing Estimated GFR (MDRD) (>60) mL/min BUN/Creatinine Ratio (14-18) Glucose (74-106) mg/dL Calcium (8.5-10.1) mg/dL Total Bilirubin (0.2-1.0) mg/dL AST (15-37) U/L ALT (14-59) U/L Alkaline Phosphatase (46-116) U/L Total Protein (6.4-8.2) g/dl Albumin (3.4-5.0) g/dl Globulin gm/dL Albumin/Globulin Ratio (1-2) TSH 3rd Generation (0.358-3.74) uIU/mL Urine HCG, Qual Negative (NEGATIVE) Salicylates (2.8-20) mg/dL Urine Opiates Screen Negative (KYWSHC=478) Ur Buprenorphine Scrn Negative (CUTOFF=10) Ur Oxycodone Screen Negative (WJB9CP=557) Urine Methadone Screen Negative (EVBMEA=835) Ur Propoxyphene Screen Negative (CYPZKB=342) Acetaminophen (10-30) ug/mL Ur Barbiturates Screen Negative (XFRDLL=356) Ur Tricyclics Screen Negative (EXUOUN=277) Ur Phencyclidine Scrn Negative (CUTOFF=25) Ur Amphetamine Screen Negative (XQXUSY=498) U Methamphetamines Scrn Negative (KPIBJA=272) U Benzodiazepines Scrn Negative (SOBFDI=230) U Cocaine Metab Screen Negative (KJYCJU=816) U Marijuana (THC) Screen Negative (CUTOFF=50) Ethyl Alcohol (0.00) gm% 11/09/20 11/09/20 Range/Units 20:41 20:41 WBC (3.98-10.04) K/mm3 RBC (3.98-5.22) M/mm3 Hgb (11.2-15.7) gm/dl Hct (34.1-44.9) % MCV (79.4-94.8) fl MCH (25.6-32.2) pg MCHC (32.2-35.5) g/dl RDW Std Deviation (36.4-46.3) fL Plt Count (182-369) K/mm3 MPV (9.4-12.3) fl Neutrophils % (Manual) (40-60) % Band Neutrophils % (0-10) % Lymphocytes % (Manual) (20-40) % Atypical Lymphs % % Monocytes % (Manual) (2-10) % Eosinophils % (Manual) (0.7-5.8) % Basophils % (Manual) (0.1-1.2) Platelet Estimate RBC Morph Comment Sodium 138 (136-145) mEq/L Potassium 3.5 (3.5-5.1) mEq/L Chloride 102 (98-107) mEq/L Carbon Dioxide 27 (21-32) mEq/L Anion Gap 12.5 (5-15) BUN 15 (7-18) mg/dL Creatinine 1.0 (0.55-1.02) mg/dL Est Cr Clr Drug Dosing TNP Estimated GFR (MDRD) > 60 (>60) mL/min BUN/Creatinine Ratio 15.0 (14-18) Glucose 102 (74-106) mg/dL Calcium 9.4 (8.5-10.1) mg/dL Total Bilirubin 0.4 (0.2-1.0) mg/dL AST 12 L (15-37) U/L ALT 19 (14-59) U/L Alkaline Phosphatase 72 (46-116) U/L Total Protein 7.8 (6.4-8.2) g/dl Albumin 4.2 (3.4-5.0) g/dl Globulin 3.6 gm/dL Albumin/Globulin Ratio 1.2 (1-2) TSH 3rd Generation 1.138 (0.358-3.74) uIU/mL Urine HCG, Qual (NEGATIVE) Salicylates 2.8 (2.8-20) mg/dL Urine Opiates Screen (ZNCTNI=218) Ur Buprenorphine Scrn (CUTOFF=10) Ur Oxycodone Screen (LWX7GS=199) Urine Methadone Screen (RJIMSK=383) Ur Propoxyphene Screen (ILBDVD=796) Acetaminophen 0 L (10-30) ug/mL Ur Barbiturates Screen (JJVEGY=777) Ur Tricyclics Screen (LZZLQW=818) Ur Phencyclidine Scrn (CUTOFF=25) Ur Amphetamine Screen (DJZBAV=714) U Methamphetamines Scrn (IGSPDX=756) U Benzodiazepines Scrn (OOEZFK=642) U Cocaine Metab Screen (LCCAVP=359) U Marijuana (THC) Screen (CUTOFF=50) Ethyl Alcohol 0.00 (0.00) gm% Medications Discontinued Medications Generic Name Dose Route Start Last Admin Trade Name Freq PRN Reason Stop Dose Admin Lorazepam 0.5 mg 11/09/20 21:26 11/09/20 21:58 Lorazepam 0.5 Mg Tab PO 11/09/20 21:27 0.5 mg ONETIME ONE Administration Medical Clearance: Patient is a 24-year-old female presenting to the emergency department for evaluation for medical clearance to go to the [facility] residential crisis center related to suicidal ideation. She does have a history of anxiety, depression, and suicidal thoughts. She has been seen in this ER a number of times with similar complaints. The [facility] keymodule assembly supervisor is in the room with her and is prepared to take her to the residential crisis center once she receives medical clearance. Exam is grossly unremarkable. I have ordered a standard psychiatric work-up. 11/09/20 21:35 Psychiatric work-up is grossly unremarkable. Drug screen is negative. I have ordered Ativan 0.5 mg PO. Patient is medically cleared to go to the residential crisis center I will write for her to continue her home medications as prescribed. Discharge instructions as documented Departure - Departure Time of Disposition: 21:47 Disposition: DC/Tfer to Other 70 Condition: Good Clinical Impression: Suicidal thoughts - Discharge Information *PRESCRIPTION DRUG MONITORING PROGRAM REVIEWED*: No *COPY OF PRESCRIPTION DRUG MONITORING REPORT IN PATIENT JOSEFINA: No Instructions: Suicidal Feelings: How to Help Yourself Referrals: Anne Monahan NP [Primary Care Provider] - Forms: ED Department Discharge Additional Instructions: You were seen in the emergency department today for medical clearance to go to the [facility] residential crisis center. Blood work, urinalysis, and EKG were completed and found to be normal. While in the ER, you received a dose of Ativan for anxiety. You have been medically cleared to go to the [facility] residential crisis center. You may continue your home medications as previously prescribed. Recommend that you follow the treatment plan they create for you. Return to ER as needed. Sepsis Event Note (ED) - Evaluation Sepsis Screening Result: No Definite Risk - Focused Exam Vital Signs: Vital Signs Temp Pulse Resp BP Pulse Ox 11/09/20 20:23 98.6 F 99 16 140/90 97
== END 2020-11-09 22:00 | disposition other institution (70) ==
LOC: JD.ED 20:07
DX: F32.9 Major depressive disorder, single episode, unspecified (principal); E66.9 Obesity, unspecified; I10 Essential (primary) hypertension; Z68.30 Body mass index [BMI] 30.0-30.9, adult; Z88.4 Allergy status to anesthetic agent; Z88.8 Allergy status to other drugs, medicaments and biological substances; Z79.899 Other long term (current) drug therapy
CPT/HCPCS: 36415; 80053; 80143; 80179; 80306; 80307; 81025; 84443; 85007; 85027; 93005; 99285; A9270; 93010; 99283

== ENCOUNTER 2020-11-30 02:24 | Emergency (ER) | payer MEDICAID ==
--- NOTE | 2020-11-30 02:37 | EDM.PDOC ---
ED HPI GENERAL MEDICAL PROBLEM - General Chief Complaint: Respiratory Problem Stated Complaint: [facility]F AMB Time Seen by Provider: 11/30/20 02:31 - History of Present Illness INITIAL COMMENTS - FREE TEXT/NARRATIVE: 25-year-old female presents to the emergency room with shortness of breath. She has been coughing and has developed some wheezes in her chest. Her cough is nonproductive. She has had a temperature in the 99 range. She has had loss of taste but smell still works. She has had no gastrointestinal symptoms. And she has a sore throat. Patient admits to smoking. But will not tell me how much. She denies any other complaints at this time. - Related Data Allergies Allergy/AdvReac Type Severity Reaction Status Date / Time divalproex sodium Allergy Intermediate Rash Verified 11/30/20 02:36 [From Depakote] lurasidone [From Latuda] Allergy Intermediate Rash Verified 11/30/20 02:36 Home Meds: Home Meds amLODIPine Besylate [Norvasc] 10 mg PO DAILY 08/03/20 [History] lamoTRIgine [Lamotrigine] 150 mg PO BID 08/03/20 [History] ClonazePAM [KlonoPIN] 1 mg PO BID 08/22/20 [History] haloperidoL [Haloperidol] 10 mg PO BEDTIME 11/09/20 [History] hydroCHLOROthiazide [Hydrochlorothiazide] 25 mg PO DAILY 11/09/20 [History] traZODone HCl [Trazodone HCl] 100 mg PO BEDTIME 11/09/20 [History] Past Medical History Cardiovascular History: Reports: Hypertension Psychiatric History: Reports: Anxiety, Depression, PTSD, Suicidal Ideation Other Psychiatric History: SI with no plan at this time Endocrine/Metabolic History: Reports: Obesity/BMI 30+ Social & Family History - Family History Family Medical History: No Pertinent Family History - Caffeine Use Caffeine Use: Reports: None ED ROS GENERAL - Review of Systems Review Of Systems: See Below Constitutional: Reports: Fever (Subjective she checks it at home 99 4 is as high as it is been). Denies: No Symptoms HEENT: Reports: Throat Pain Respiratory: Reports: Shortness of Breath, Wheezing, Cough. Denies: Sputum, Hem optysis Cardiovascular: Reports: No Symptoms GI/Abdominal: Reports: No Symptoms Musculoskeletal: Reports: No Symptoms Skin: Reports: No Symptoms Neurological: Reports: No Symptoms ED EXAM, GENERAL - Physical Exam Exam: See Below Exam Limited By: No Limitations General Appearance: Alert, No Apparent Distress Eye Exam: Bilateral Eye: Normal Inspection Ears: Normal External Exam, Normal Canal, Hearing Grossly Normal, Normal TMs Nose: Normal Inspection, Normal Mucosa, No Blood Throat/Mouth: Normal Inspection, Normal Lips, Normal Gums, Normal Oropharynx, Normal Voice, No Airway Compromise Head: Atraumatic, Normocephalic Neck: Normal Inspection, Supple, Non-Tender, Full Range of Motion. No: Lymphadenopathy (L), Lymphadenopathy (R) Respiratory/Chest: No Respiratory Distress, Lungs Clear, Normal Breath Sounds Cardiovascular: Regular Rate, Rhythm, No Edema, No Murmur Course - Vital Signs Last Recorded V/S: Last Vital Signs Temp 37.3 C 11/30/20 02:28 Pulse 142 H 11/30/20 02:28 Resp 20 11/30/20 02:28 BP 131/92 H 11/30/20 02:28 Pulse Ox 100 11/30/20 03:13 - Orders/Labs/Meds Orders: Active Orders 24 hr Category Date Time Status RT Post Treatment Assessment [RC] Click to Edit Care 11/30/20 02:41 Active RT Pre-Treatment Assessment [RC] Click to Edit Care 11/30/20 02:41 Active Ang Chest [CT] Stat Exams 11/30/20 03:34 Taken Chest 1V Frontal [CR] Stat Exams 11/30/20 02:38 Taken Sodium Chloride 0.9% [Normal Saline] 100 ml Med 11/30/20 03:45 Active IV ASDIRECTED Medication Orders Sodium Chloride (Normal Saline) 100 mls @ 60 mls/hr IV ASDIRECTED MIGDALIA Labs: Laboratory Tests 11/30/20 11/30/20 11/30/20 Range/Units 02:23 03:00 03:00 WBC 6.60 (3.98-10.04) K/mm3 RBC 4.39 (3.98-5.22) M/mm3 Hgb 13.1 (11.2-15.7) gm/dl Hct 38.6 (34.1-44.9) % MCV 87.9 (79.4-94.8) fl MCH 29.8 (25.6-32.2) pg MCHC 33.9 (32.2-35.5) g/dl RDW Std Deviation 39.9 (36.4-46.3) fL Plt Count 283 (182-369) K/mm3 MPV 9.2 L (9.4-12.3) fl Neut % (Auto) 54.7 (34.0-71.1) % Lymph % (Auto) 30.6 (19.3-51.7) % [place] % (Auto) 11.8 (4.7-12.5) % Eos % (Auto) 2.4 (0.7-5.8) Baso % (Auto) 0.3 (0.1-1.2) % Neut # (Auto) 3.61 (1.56-6.13) K/mm3 Lymph # (Auto) 2.02 (1.18-3.74) K/mm3 [place] # (Auto) 0.78 H (0.24-0.36) K/mm3 Eos # (Auto) 0.16 (0.04-0.36) K/mm3 Baso # (Auto) 0.02 (0.01-0.08) K/mm3 D-Dimer, Quantitative (0.19-0.50) mg/L Sodium 141 (136-145) mEq/L Potassium 3.5 (3.5-5.1) mEq/L Chloride 104 (98-107) mEq/L Carbon Dioxide 25 (21-32) mEq/L Anion Gap 15.5 H (5-15) BUN 14 (7-18) mg/dL Creatinine 1.1 H (0.55-1.02) mg/dL Est Cr Clr Drug Dosing 79.55 mL/min Estimated GFR (MDRD) > 60 (>60) mL/min BUN/Creatinine Ratio 12.7 L (14-18) Glucose 99 (70-99) mg/dL Calcium 9.0 (8.5-10.1) mg/dL Ferritin (8-252) ng/ml Total Bilirubin 0.4 (0.2-1.0) mg/dL AST 13 L (15-37) U/L ALT 18 (14-59) U/L Alkaline Phosphatase 65 (46-116) U/L C-Reactive Protein 1.8 H* (<1.0) mg/dL Total Protein 7.6 (6.4-8.2) g/dl Albumin 4.0 (3.4-5.0) g/dl Globulin 3.6 gm/dL Albumin/Globulin Ratio 1.1 (1-2) Influenza Type A RNA Negative (NEGATIVE) Influenza Type B RNA Negative (NEGATIVE) SARS-CoV-2 RNA (LAILA) Negative (NEGATIVE) Group A Strep (PCR) (NOT DETECT) 11/30/20 11/30/20 11/30/20 Range/Units 03:00 03:00 04:20 WBC (3.98-10.04) K/mm3 RBC (3.98-5.22) M/mm3 Hgb (11.2-15.7) gm/dl Hct (34.1-44.9) % MCV (79.4-94.8) fl MCH (25.6-32.2) pg MCHC (32.2-35.5) g/dl RDW Std Deviation (36.4-46.3) fL Plt Count (182-369) K/mm3 MPV (9.4-12.3) fl Neut % (Auto) (34.0-71.1) % Lymph % (Auto) (19.3-51.7) % [place] % (Auto) (4.7-12.5) % Eos % (Auto) (0.7-5.8) Baso % (Auto) (0.1-1.2) % Neut # (Auto) (1.56-6.13) K/mm3 Lymph # (Auto) (1.18-3.74) K/mm3 [place] # (Auto) (0.24-0.36) K/mm3 Eos # (Auto) (0.04-0.36) K/mm3 Baso # (Auto) (0.01-0.08) K/mm3 D-Dimer, Quantitative 0.88 H (0.19-0.50) mg/L Sodium (136-145) mEq/L Potassium (3.5-5.1) mEq/L Chloride (98-107) mEq/L Carbon Dioxide (21-32) mEq/L Anion Gap (5-15) BUN (7-18) mg/dL Creatinine (0.55-1.02) mg/dL Est Cr Clr Drug Dosing mL/min Estimated GFR (MDRD) (>60) mL/min BUN/Creatinine Ratio (14-18) Glucose (70-99) mg/dL Calcium (8.5-10.1) mg/dL Ferritin 54 (8-252) ng/ml Total Bilirubin (0.2-1.0) mg/dL AST (15-37) U/L ALT (14-59) U/L Alkaline Phosphatase (46-116) U/L C-Reactive Protein (<1.0) mg/dL Total Protein (6.4-8.2) g/dl Albumin (3.4-5.0) g/dl Globulin gm/dL Albumin/Globulin Ratio (1-2) Influenza Type A RNA (NEGATIVE) Influenza Type B RNA (NEGATIVE) SARS-CoV-2 RNA (LAILA) (NEGATIVE) Group A Strep (PCR) Not detected (NOT DETECT) Meds: Medications Generic Name Dose Route Start Last Admin Trade Name Freq PRN Reason Stop Dose Admin Sodium Chloride 100 mls @ 60 mls/hr 11/30/20 03:45 Normal Saline IV ASDIRECTED MIGDALIA Discontinued Medications Generic Name Dose Route Start Last Admin Trade Name Freq PRN Reason Stop Dose Admin Acetaminophen 975 mg 11/30/20 03:33 11/30/20 03:56 Acetaminophen 325 Mg Tab PO 11/30/20 03:34 975 mg NOW ONE Administration Albuterol 0 gm 11/30/20 02:41 11/30/20 02:56 Albuterol 6.7 Gm Inhaler INH 11/30/20 02:42 2 puff ONETIME ONE Administration Iopamidol 100 ml 11/30/20 03:45 11/30/20 04:42 Iopamidol 755 Mg/Ml 100 Ml Bottle IVPUSH 11/30/20 03:46 Not Given ONETIME ONE Sodium Chloride 10 ml 11/30/20 03:45 11/30/20 04:42 Sodium Chloride 0.9% 10 Ml Syringe FLUSH 11/30/20 03:46 Not Given ONETIME ONE - Re-Assessments/Exams Free Text/Narrative Re-Assessment/Exam: 11/30/20 05:56 2 evaluations for the most part unremarkable D-dimer unfortunately is elevated 0.88. I did discuss this with the patient and she consented to checking a pulmonary CTA which was ultimately negative for acute change or pulmonary embolism. The patient was given an albuterol MDI and felt much better after using this. Departure - Departure Time of Disposition: 05:42 Disposition: Home, Self-Care 01 Clinical Impression: Bronchitis - Discharge Information Referrals: PCP,None [Primary Care Provider] - Forms: ED Department Discharge Additional Instructions: Return to the emergency room with any questions problems or worsening symptoms. Use your albuterol inhaler and spacer 2 puffs every 4 hours while awake. Tylenol as needed for discomfort. Please quit smoking. Sepsis Event Note (ED) - Focused Exam Vital Signs: Vital Signs Temp Pulse Resp BP Pulse Ox Pulse Ox Pulse Ox 11/30/20 03:13 100 11/30/20 02:57 100 11/30/20 02:28 37.3 C 142 H 20 131/92 H 100 - My Orders Last 24 Hours: My Active Orders 11/30/20 02:38 Chest 1V Frontal [CR] Stat 11/30/20 02:41 RT Post Treatment Assessment [RC] Click to Edit RT Pre-Treatment Assessment [RC] Click to Edit 11/30/20 03:34 Ang Chest [CT] Stat 11/30/20 03:45 Sodium Chloride 0.9% [Normal Saline] 100 ml IV ASDIRECTED - Assessment/Plan Last 24 Hours: My Active Orders 11/30/20 02:38 Chest 1V Frontal [CR] Stat 11/30/20 02:41 RT Post Treatment Assessment [RC] Click to Edit RT Pre-Treatment Assessment [RC] Click to Edit 11/30/20 03:34 Ang Chest [CT] Stat 11/30/20 03:45 Sodium Chloride 0.9% [Normal Saline] 100 ml IV ASDIRECTED
[2020-11-30] MEDS ORDERED: Albuterol 6.7 GM Inhaler INH ONE (02:41)
[2020-11-30 03:10] LABS: CORONAVIRUS COVID-19 NAA NEGATIVE (NEGATIVE)
[2020-11-30] MEDS ORDERED: Acetaminophen 325 MG Tab PO ONE (03:33)
[2020-11-30] MEDS: Iopamidol 755 Mg/ML 100 ML Bottle IVPUSH ONE ×2 (03:41→04:42)
[2020-11-30] MEDS ORDERED: Sodium Chloride 0.9% 10 ML Syringe FLUSH ONE (03:45)
[2020-11-30] MEDS ORDERED: Sodium Chloride 0.9% 100 ML IV SCH (03:45)
--- NOTE | 2020-11-30 06:49 | CR ---
Chest: Portable view of the chest was obtained. Comparison: No prior chest imaging is available. Heart size and mediastinum are normal. Lungs are clear with no acute parenchymal change. Bony structures show nothing acute. Impression: 1. Nothing acute is seen on portable chest x-ray. Diagnostic code #1
--- NOTE | 2020-11-30 07:46 | CT ---
CT pulmonary angiogram Technique: Multiple axial sections were obtained through the chest. Intravenous contrast was utilized. Study has been performed as a pulmonary angiogram protocol. Comparison: Prior chest x-ray performed earlier on the same day. Findings: Pulmonary arteries are well opacified. No filling defects are seen to indicate pulmonary embolism. No pericardial effusion is seen. Thoracic aorta shows no aneurysm. Small lymph nodes are seen within the axillary regions which are believed to be within normal limits. Visualized upper abdominal structures show no discrete abnormality. Lung window settings were reviewed which show no acute parenchymal process. Bone window settings were reviewed which show no acute osseous abnormality. Impression: 1. No findings of pulmonary embolism. 2. Nothing acute is seen on CT study of the chest. Diagnostic code #1 I agree with preliminary report from [facility], finalized on 11/30/20, 5:26 AM CDT, code 1
== END 2020-11-30 05:45 | disposition home or self-care (01) ==
LOC: JD.ED 02:24
DX: J40 Bronchitis, not specified as acute or chronic (principal); I10 Essential (primary) hypertension; E66.9 Obesity, unspecified; Z88.5 Allergy status to narcotic agent; Z88.8 Allergy status to other drugs, medicaments and biological substances; Z20.822 Contact with and (suspected) exposure to COVID-19; Z68.41 Body mass index [BMI] 40.0-44.9, adult
CPT/HCPCS: 0240U; 36415; 71045; 71275; 80053; 82728; 85025; 85379; 86140; 87651; 94640; 99285; A9270; Q9967; 99283

== ENCOUNTER 2020-11-30 16:47 | Emergency (ER) | payer MEDICAID ==
[2020-11-30] MEDS ORDERED: LORazepam 1 MG Tab PO ONE (17:38)
[2020-11-30 18:11] LABS: ACETAMINOPHEN 1 ug/mL (10-30)
--- NOTE | 2020-11-30 18:40 | EDM.PDOCBH ---
ED HPI GENERAL MEDICAL PROBLEM - General Chief Complaint: Behavioral/Psych Stated Complaint: MENTAL EVALUATION Time Seen by Provider: 11/30/20 18:00 Source of Information: Reports: Patient, Other (2 counselors from [facility]) History Limitations: Reports: Uncooperative (the patient is extremely hostile) - History of Present Illness INITIAL COMMENTS - FREE TEXT/NARRATIVE: Ms. Larson is a 25-year-old woman who, medical records indicate, was seen in this ED early this morning with a complaint of a nonproductive cough, wheezing, and a sore throat. She was found to be hemodynamically stable, afebrile, saturating 100% on room air. Her physical exam was unremarkable. Work-up included a CBC, CMP, CRP, D-dimer, ferritin level, Group A strep by PCR, a swab for the SARS-CoV-2 virus and influenza A + B viruses, a portable chest x-ray, and a CT angiogram of the chest. Her entire work-up was unremarkable. She was diagnosed with bronchitis. She was given an albuterol MDI and spacer chamber before being discharged home. She is now brought back to the ED by 2 members of [facility], who tell me that because she was in the ED earlier, she did not get much sleep today. After she got home, she apparently gave her landlord her 30-day notice. The landlord then told her that she was in violation of her lease, and they got into a heated argument. The patient's roommates also got involved. The police and [facility] were called. The [facility] counselor found the patient to be very agitated and in despair. The argument between the patient and the [facility] counselor became near-violent. Around 15:30, the patient told Shira from [facility] that she might OD, which Shira felt was a threat of suicide, prompting her to be brought to the ED. [facility] is hoping we can get her psychiatrically admitted. They stated that there are no beds available at [facility], presently. The patient states that she is not feeling suicidal. She states that she is just very angry. When asked if she has ever attempted to harm herself in the past, she stated "with drugs", but then refused to elaborate on what kinds of drugs, or when, etc. The patient stated that she has psychiatric diagnoses of bipolar affective disorder, schizophrenia, and PTSD. It is unclear if she is currently on medications to treat any of these. The 2 counselors from [facility] tell me that the patient had been doing well as recently as last week. Here in the ED tonight, the patient is found to be mildly tachycardic at 110 bpm, otherwise, she is hemodynamically stable, afebrile, saturating 100% on room air. Due to the patient being uncooperative, a recent review of history is not obtainable. It is not known if the patient has a PCP or Psychiatrist, however, she does see a counselor at [facility]. - Related Data Allergies Allergy/AdvReac Type Severity Reaction Status Date / Time divalproex sodium Allergy Intermediate Rash Verified 11/30/20 17:00 [From Depakote] lurasidone [From Latuda] Allergy Intermediate Rash Verified 11/30/20 17:00 Home Meds: Home Meds amLODIPine Besylate [Norvasc] 10 mg PO DAILY 08/03/20 [History] lamoTRIgine [Lamotrigine] 150 mg PO BID 08/03/20 [History] ClonazePAM [KlonoPIN] 1 mg PO BID 08/22/20 [History] haloperidoL [Haloperidol] 10 mg PO BEDTIME 11/09/20 [History] hydroCHLOROthiazide [Hydrochlorothiazide] 25 mg PO DAILY 11/09/20 [History] traZODone HCl [Trazodone HCl] 100 mg PO BEDTIME 11/09/20 [History] Past Medical History Cardiovascular History: Reports: Hypertension Psychiatric History: Reports: Anxiety, Bipolar, Depression, PTSD, Schizophrenia, Suicidal Ideation Endocrine/Metabolic History: Reports: Obesity/BMI 30+ Social & Family History - Family History Family Medical History: No Pertinent Family History - Tobacco Use Tobacco Use Status *Q: Current Every Day Tobacco User - Caffeine Use Caffeine Use: Reports: None ED ROS GENERAL - Review of Systems Review Of Systems: Unable To Obtain Reason Not Obtained: Patient hostility ED EXAM, BEHAVIORAL HEALTH - Physical Exam Exam: See Below Exam Limited By: No Limitations General Appearance: Alert, WD/WN, No Apparent Distress Eye Exam: Bilateral Eye: EOMI, Normal Inspection Ears: Normal External Exam, Hearing Grossly Normal Nose: Normal Inspection Throat/Mouth: Normal Inspection, Normal Lips, Normal Voice, No Airway Compromise Head: Atraumatic, Normocephalic Neck: Normal Inspection, Full Range of Motion Respiratory/Chest: No Respiratory Distress, Lungs Clear, Normal Breath Sounds, No Accessory Muscle Use Cardiovascular: Normal Peripheral Pulses, Regular Rate, Rhythm, No Edema, No Gallop, No JVD, No Murmur, No Rub GI/Abdominal: Normal Bowel Sounds, Soft, Non-Tender, No Organomegaly, No Distention, No Abnormal Bruit, No Mass Back Exam: Normal Inspection, Full Range of Motion, NT Extremities: Normal Inspection, Normal Range of Motion, No Pedal Edema, Normal Capillary Refill Neurological: Alert, No Motor/Sensory Deficits Psychiatric: Other (Hostile) Skin Exam: Warm, Dry, Intact, Normal color, No rash COURSE, BEHAVIORAL HEALTH COMP - Course Vital Signs: Last Vital Signs Temp 36.2 C 11/30/20 16:58 Pulse 110 H 11/30/20 16:58 Resp 16 11/30/20 16:58 BP 128/95 H 11/30/20 16:58 Pulse Ox 100 11/30/20 16:58 Orders, Labs, Meds: Laboratory Tests 11/30/20 11/30/20 11/30/20 Range/Units 17:41 17:41 17:41 WBC 6.99 (3.98-10.04) K/mm3 RBC 4.54 (3.98-5.22) M/mm3 Hgb 13.5 (11.2-15.7) gm/dl Hct 40.3 (34.1-44.9) % MCV 88.8 (79.4-94.8) fl MCH 29.7 (25.6-32.2) pg MCHC 33.5 (32.2-35.5) g/dl RDW Std Deviation 41.2 (36.4-46.3) fL Plt Count 277 (182-369) K/mm3 MPV 9.4 (9.4-12.3) fl Neut % (Auto) 68.1 (34.0-71.1) % Lymph % (Auto) 20.3 (19.3-51.7) % Hart % (Auto) 9.9 (4.7-12.5) % Eos % (Auto) 1.0 (0.7-5.8) Baso % (Auto) 0.3 (0.1-1.2) % Neut # (Auto) 4.76 (1.56-6.13) K/mm3 Lymph # (Auto) 1.42 (1.18-3.74) K/mm3 Hart # (Auto) 0.69 H (0.24-0.36) K/mm3 Eos # (Auto) 0.07 (0.04-0.36) K/mm3 Baso # (Auto) 0.02 (0.01-0.08) K/mm3 Sodium 143 (136-145) mEq/L Potassium 3.7 (3.5-5.1) mEq/L Chloride 105 (98-107) mEq/L Carbon Dioxide 25 (21-32) mEq/L Anion Gap 16.7 H (5-15) BUN 11 (7-18) mg/dL Creatinine 1.0 (0.55-1.02) mg/dL Est Cr Clr Drug Dosing TNP Estimated GFR (MDRD) > 60 (>60) mL/min BUN/Creatinine Ratio 11.0 L (14-18) Glucose 104 H (70-99) mg/dL Calcium 9.2 (8.5-10.1) mg/dL Total Bilirubin 0.5 (0.2-1.0) mg/dL AST 12 L (15-37) U/L ALT 19 (14-59) U/L Alkaline Phosphatase 58 (46-116) U/L Total Protein 7.5 (6.4-8.2) g/dl Albumin 3.9 (3.4-5.0) g/dl Globulin 3.6 gm/dL Albumin/Globulin Ratio 1.1 (1-2) Urine Color (Yellow) Urine Appearance (Clear) Urine pH (5.0-8.0) Ur Specific [place] (1.005-1.030) Urine Protein (Negative) Urine Glucose (UA) (Negative) Urine Ketones (Negative) Urine Occult Blood (Negative) Urine Nitrite (Negative) Urine Bilirubin (Negative) Urine Urobilinogen (0.2-1.0) Ur Leukocyte Esterase (Negative) Urine RBC (0-5) /hpf Urine WBC (0-5) /hpf Ur Squamous Epith Cells (0-5) /hpf Urine Bacteria (FEW) /hpf Urine Mucus (FEW) /hpf Urine HCG, Qual (NEGATIVE) Salicylates 1.1 L (2.8-20) mg/dL Urine Opiates Screen (OKVQCO=141) Ur Buprenorphine Scrn (CUTOFF=10) Ur Oxycodone Screen (PPP8XE=327) Urine Methadone Screen (XWGEYL=803) Ur Propoxyphene Screen (RUGQXX=942) Acetaminophen 1 L (10-30) ug/mL Ur Barbiturates Screen (DOTNVW=163) Ur Tricyclics Screen (WVOTEY=955) Ur Phencyclidine Scrn (CUTOFF=25) Ur Amphetamine Screen (ZXNBGB=153) U Methamphetamines Scrn (SYCDPN=543) U Benzodiazepines Scrn (WVECHC=686) U Cocaine Metab Screen (GVPCDC=028) U Marijuana (THC) Screen (CUTOFF=50) Ethyl Alcohol 0.00 (0.00) gm% SARS-CoV-2 RNA (LAILA) (NEGATIVE) 11/30/20 11/30/20 11/30/20 Range/Units 17:45 17:45 17:45 WBC (3.98-10.04) K/mm3 RBC (3.98-5.22) M/mm3 Hgb (11.2-15.7) gm/dl Hct (34.1-44.9) % MCV (79.4-94.8) fl MCH (25.6-32.2) pg MCHC (32.2-35.5) g/dl RDW Std Deviation (36.4-46.3) fL Plt Count (182-369) K/mm3 MPV (9.4-12.3) fl Neut % (Auto) (34.0-71.1) % Lymph % (Auto) (19.3-51.7) % Hart % (Auto) (4.7-12.5) % Eos % (Auto) (0.7-5.8) Baso % (Auto) (0.1-1.2) % Neut # (Auto) (1.56-6.13) K/mm3 Lymph # (Auto) (1.18-3.74) K/mm3 Hart # (Auto) (0.24-0.36) K/mm3 Eos # (Auto) (0.04-0.36) K/mm3 Baso # (Auto) (0.01-0.08) K/mm3 Sodium (136-145) mEq/L Potassium (3.5-5.1) mEq/L Chloride (98-107) mEq/L Carbon Dioxide (21-32) mEq/L Anion Gap (5-15) BUN (7-18) mg/dL Creatinine (0.55-1.02) mg/dL Est Cr Clr Drug Dosing Estimated GFR (MDRD) (>60) mL/min BUN/Creatinine Ratio (14-18) Glucose (70-99) mg/dL Calcium (8.5-10.1) mg/dL Total Bilirubin (0.2-1.0) mg/dL AST (15-37) U/L ALT (14-59) U/L Alkaline Phosphatase (46-116) U/L Total Protein (6.4-8.2) g/dl Albumin (3.4-5.0) g/dl Globulin gm/dL Albumin/Globulin Ratio (1-2) Urine Color Yellow (Yellow) Urine Appearance Clear (Clear) Urine pH 6.5 (5.0-8.0) Ur Specific [place] 1.020 (1.005-1.030) Urine Protein 2+ H (Negative) Urine Glucose (UA) Negative (Negative) Urine Ketones Negative (Negative) Urine Occult Blood Trace-intact H (Negative) Urine Nitrite Negative (Negative) Urine Bilirubin Negative (Negative) Urine Urobilinogen 0.2 (0.2-1.0) Ur Leukocyte Esterase Trace H (Negative) Urine RBC 0-5 (0-5) /hpf Urine WBC 0-5 (0-5) /hpf Ur Squamous Epith Cells 0-5 (0-5) /hpf Urine Bacteria Moderate H (FEW) /hpf Urine Mucus Few (FEW) /hpf Urine HCG, Qual Negative (NEGATIVE) Salicylates (2.8-20) mg/dL Urine Opiates Screen Negative (RPNHIL=808) Ur Buprenorphine Scrn Negative (CUTOFF=10) Ur Oxycodone Screen Negative (JXU4OG=033) Urine Methadone Screen Negative (MZBRDP=343) Ur Propoxyphene Screen Negative (CAMZWE=443) Acetaminophen (10-30) ug/mL Ur Barbiturates Screen Negative (UPWESX=892) Ur Tricyclics Screen Negative (WVLRAT=776) Ur Phencyclidine Scrn Negative (CUTOFF=25) Ur Amphetamine Screen Negative (HBUHES=918) U Methamphetamines Scrn Negative (FREXPU=023) U Benzodiazepines Scrn Negative (LHXSQO=335) U Cocaine Metab Screen Negative (USBKDV=377) U Marijuana (THC) Screen Negative (CUTOFF=50) Ethyl Alcohol (0.00) gm% SARS-CoV-2 RNA (LAILA) (NEGATIVE) 11/30/20 Range/Units 17:58 WBC (3.98-10.04) K/mm3 RBC (3.98-5.22) M/mm3 Hgb (11.2-15.7) gm/dl Hct (34.1-44.9) % MCV (79.4-94.8) fl MCH (25.6-32.2) pg MCHC (32.2-35.5) g/dl RDW Std Deviation (36.4-46.3) fL Plt Count (182-369) K/mm3 MPV (9.4-12.3) fl Neut % (Auto) (34.0-71.1) % Lymph % (Auto) (19.3-51.7) % Hart % (Auto) (4.7-12.5) % Eos % (Auto) (0.7-5.8) Baso % (Auto) (0.1-1.2) % Neut # (Auto) (1.56-6.13) K/mm3 Lymph # (Auto) (1.18-3.74) K/mm3 Hart # (Auto) (0.24-0.36) K/mm3 Eos # (Auto) (0.04-0.36) K/mm3 Baso # (Auto) (0.01-0.08) K/mm3 Sodium (136-145) mEq/L Potassium (3.5-5.1) mEq/L Chloride (98-107) mEq/L Carbon Dioxide (21-32) mEq/L Anion Gap (5-15) BUN (7-18) mg/dL Creatinine (0.55-1.02) mg/dL Est Cr Clr Drug Dosing Estimated GFR (MDRD) (>60) mL/min BUN/Creatinine Ratio (14-18) Glucose (70-99) mg/dL Calcium (8.5-10.1) mg/dL Total Bilirubin (0.2-1.0) mg/dL AST (15-37) U/L ALT (14-59) U/L Alkaline Phosphatase (46-116) U/L Total Protein (6.4-8.2) g/dl Albumin (3.4-5.0) g/dl Globulin gm/dL Albumin/Globulin Ratio (1-2) Urine Color (Yellow) Urine Appearance (Clear) Urine pH (5.0-8.0) Ur Specific [place] (1.005-1.030) Urine Protein (Negative) Urine Glucose (UA) (Negative) Urine Ketones (Negative) Urine Occult Blood (Negative) Urine Nitrite (Negative) Urine Bilirubin (Negative) Urine Urobilinogen (0.2-1.0) Ur Leukocyte Esterase (Negative) Urine RBC (0-5) /hpf Urine WBC (0-5) /hpf Ur Squamous Epith Cells (0-5) /hpf Urine Bacteria (FEW) /hpf Urine Mucus (FEW) /hpf Urine HCG, Qual (NEGATIVE) Salicylates (2.8-20) mg/dL Urine Opiates Screen (JVZITB=682) Ur Buprenorphine Scrn (CUTOFF=10) Ur Oxycodone Screen (NPB7JC=139) Urine Methadone Screen (EVTSRN=989) Ur Propoxyphene Screen (IWBIKO=641) Acetaminophen (10-30) ug/mL Ur Barbiturates Screen (ZBZWYS=100) Ur Tricyclics Screen (ZNNGQF=719) Ur Phencyclidine Scrn (CUTOFF=25) Ur Amphetamine Screen (IZMJFK=043) U Methamphetamines Scrn (RYYUAN=721) U Benzodiazepines Scrn (PWAQEG=404) U Cocaine Metab Screen (QLNSYY=711) U Marijuana (THC) Screen (CUTOFF=50) Ethyl Alcohol (0.00) gm% SARS-CoV-2 RNA (LAILA) Negative (NEGATIVE) Medications Discontinued Medications Generic Name Dose Route Start Last Admin Trade Name Danna PRN Reason Stop Dose Admin Lorazepam 1 mg 11/30/20 17:38 11/30/20 18:00 Lorazepam 1 Mg Tab PO 11/30/20 17:39 1 mg ONETIME ONE Administration Medical Clearance: 11/30/20 18:36 As above, the patient became agitated earlier today, gave notice to her landlord, which turned into a heated argument, the police and [facility] were called, which did not go well, and, ultimately, the patient is now brought here to the ED by 2 counselors from [facility] with the hope of getting her psychiatrically admitted, as they do not have any beds available at [facility]. They tell me that the patient threatened to overdose around 15:30 this afternoon, however, the patient denies feeling suicidal. When asked if she has attempted to harm herself in any way recently, she said "with drugs" but then refused to elaborate. Her physical exam is unremarkable. A psychiatric medical clearance panel is completely unremarkable. I spoke with Christi at [facility] at 18:26. Unfortunately, they have no Psychiatric beds available. I then spoke with Rachelle at [facility] at 18:26. Unfortunately, they also have no psychiatric beds available. 11/30/20 19:02 Before I went any further, I spoke with Shira, one of the counselors from [facility], because I fear that the patient does not meet criterion for a 24-hour hold, which would mean that she would not qualify to have the [facility]'s deputies transport her. This would mean that someone from [facility] would need to a transport her. Shira said that she could work on it, but was hoping that an accepting psychiatrist would also instruct that the patient be placed under 24-hour hold. Case discussed with Kiko at [facility] in not at 18:45. No psychiatric beds available. Case discussed with Joelle at [facility] at 18:47. They are not a psychia tric facility. Case discussed with Serina at [facility] at 18:49. Case then discussed with Dr. Rocio Marsh, Psychiatrist at [facility], at 18:59. She declined to accept the patient, citing the circumstances that the patient is not actively suicidal and has not attempted to harm herself. She would therefore not meet criterion to be placed under a 24-hour hold, and her concern was that if the patient decided to leave 2 minutes after getting there, they would not be able to stop her. 11/30/20 19:10 I discussed the above situation with Shira from [facility]. She expressed und erstanding. She requested that I explained that to the patient, which I did. The patient then became angry, stating "That's the last straw" and telling the 2 counselors "Let's get out of here". I told her that I would need to type up some paperwork for her discharge, but she stated "I don't need your fing paperwork" and left the ED without waiting for her discharge instructions. Departure - Departure Time of Disposition: 19:12 Disposition: Eloped 07 Condition: Good Clinical Impression: Threatening suicide, Hostility - Discharge Information *PRESCRIPTION DRUG MONITORING PROGRAM REVIEWED*: Not Applicable *COPY OF PRESCRIPTION DRUG MONITORING REPORT IN PATIENT JOSEFINA: Not Applicable Referrals: PCP,None [Primary Care Provider] - Forms: ED Department Discharge Sepsis Event Note (ED) - Evaluation Sepsis Screening Result: No Definite Risk
== END 2020-11-30 19:15 | disposition left against medical advice (07) ==
LOC: JD.ED 16:47
DX: R45.5 Hostility (principal); R45.851 Suicidal ideations; Z88.5 Allergy status to narcotic agent; I10 Essential (primary) hypertension; E66.9 Obesity, unspecified; Z72.0 Tobacco use; Z20.822 Contact with and (suspected) exposure to COVID-19; Z68.30 Body mass index [BMI] 30.0-30.9, adult
CPT/HCPCS: 36415; 80053; 80143; 80179; 80306; 80307; 81001; 81025; 85025; 87635; 99284; A9270; 99283; U0002